=== PATIENT | male | born 1955 | race Caucasian/White ===

== ENCOUNTER 2021-05-22 17:34 | Inpatient (IN) | payer OTHER ==
[~2021-05-22] VITALS: Ht 165.1 cm; Wt 71.0 kg
[2021-05-22 17:49] VITALS: BP_SYST 151
[2021-05-22 19:06] LABS: BASOPHILS % (AUTO) 0.3 % (0.0-2.0); EOSINOPHILS % (AUTO) 0.7 % (0.0-4.0); HEMATOCRIT 42.7 % (36-54); HEMOGLOBIN 14.1 g/dL (14.0-18.0); LYMPHOCYTES # (AUTO) 1.5 K/uL (1.0-5.5); LYMPHOCYTES % (AUTO) 35.5 % (20.5-51.5); MEAN CORPUSCULAR HEMOGLOBIN 32 pg (27-31); MEAN CORPUSCULAR HGB CONC 33 % (32-36); MEAN CORPUSCULAR VOLUME 97 fL (79.0-98.0); MONOCYTES # (AUTO) 0.2 K/uL (0.0-1.0); MONOCYTES % (AUTO) 4.7 % (1.7-9.3); NEUTROPHILS # (AUTO) 2.4 K/uL (1.8-7.7); NEUTROPHILS % (AUTO) 58.8 % (40.0-70.0); PLATELET COUNT (AUTO) 100 K/uL (130-430); RED BLOOD CELL COUNT(AUTO) 4.41 MIL/uL (4.2-6.2); RED CELL DISTRIBUTION WIDTH 15.2 % (9.0-15.0); WHITE BLOOD COUNT (AUTO) 4.1 K/uL (4.8-10.8)
[2021-05-22 19:23] LABS: CALCIUM 8.4 mg/dL (8.4-11.0); CREATININE 3.3 mg/dL (0.55-1.30); POTASSIUM 4.7 mmol/L (3.5-5.1)
[2021-05-22 19:31] LABS: ALBUMIN 1.8 g/dL (3.4-4.8); TOTAL BILIRUBIN 0.4 mg/dL (0.0-1.0)
[2021-05-22] MEDS ORDERED: IOHEXOL 350 mgI/mL, 150 ML INFUS..BTL IV ONE (19:37)
[2021-05-22 20:23] LABS: INR 1.2 (0.80-1.20); PROTHROMBIN TIME 12.2 SECS (9.5-12.5)
[2021-05-22] MEDS ORDERED: LIP20 PO (23:34)
[2021-05-22] MEDS ORDERED: CARV25TA55 PO (23:34)
[2021-05-22] MEDS ORDERED: AMLO5TAB4 PO (23:34)
[2021-05-22] MEDS ORDERED: FURO80TA86 PO (23:35)
[2021-05-22] MEDS ORDERED: SEN30 PO (23:35)
[2021-05-22] MEDS ORDERED: B CO1CAP5 PO (23:39)
[2021-05-22] MEDS ORDERED: INSU100V SQ (23:39)
[2021-05-22] MEDS ORDERED: HYDR100T25 PO (23:39)
[2021-05-22] MEDS ORDERED: SEVE800T8 PO (23:39)
[2021-05-22] MEDS ORDERED: PRO40 PO (23:39)
[2021-05-22] MEDS ORDERED: SENN8.6T19 PO (23:39)
[2021-05-22] MEDS ORDERED: METO10TA3 PO (23:39)
[2021-05-22] MEDS ORDERED: LOSA100T23 PO (23:39)
[2021-05-22] MEDS ORDERED: VARI50KI IM (23:39)
[2021-05-22] MEDS ORDERED: MIRT-91 PO (23:39)
[2021-05-23] MEDS ORDERED: HYDROcodone/ACETAMIN 5-325 MG TAB (NORCO/ VICODIN) PO PRN (05:15)
[2021-05-23] MEDS ORDERED: NALOXONE HCL 0.4 MG/ML AMP (NARCAN) IVP PRN (05:15)
[2021-05-23 05:53] VITALS: BP_SYST 137
[2021-05-23] MEDS: NORMAL SALINE 5 ML DISP.SYRIN IVF SCH ×3 (06:10→22:53)
[2021-05-23] MEDS: ALBUTEROL SULFATE 0.083% 2.5 MG/3 ML VIAL.NEB INH PRN (07:32)
[2021-05-23] MEDS ORDERED: ALBUTEROL SULFATE 0.083% 2.5 MG/3 ML VIAL.NEB INH ONE (07:33)
[2021-05-23 11:28] VITALS: BP_SYST 140
[2021-05-23] MEDS ORDERED: ALBUMIN HUMAN 25% 100 ML IV ONE (15:28)
[2021-05-23 20:00] VITALS: BP_SYST 132
[2021-05-24 00:13] VITALS: BP_SYST 141
[2021-05-24] MEDS ORDERED: GLUCOSE (DEXTROSE) ORAL GEL -Adults PO PRN (01:00)
[2021-05-24] MEDS ORDERED: D5W 1,000 ML IV PRN (01:00)
[2021-05-24] MEDS: DEXTROSE 50% JECT 50 ML DISP.SYRIN IVP PRN (01:45)
[2021-05-24] MEDS ORDERED: ALBUTEROL SULFATE 0.083% 2.5 MG/3 ML VIAL.NEB INH ONE (04:38)
[2021-05-24] MEDS: ALBUTEROL SULFATE 0.083% 2.5 MG/3 ML VIAL.NEB INH PRN (04:39)
[2021-05-24 06:46] LABS: BASOPHILS % (AUTO) 0.1 % (0.0-2.0); EOSINOPHILS % (AUTO) 0.5 % (0.0-4.0); HEMATOCRIT 35.9 % (36-54); HEMOGLOBIN 11.8 g/dL (14.0-18.0); LYMPHOCYTES # (AUTO) 0.4 K/uL (1.0-5.5); LYMPHOCYTES % (AUTO) 13.8 % (20.5-51.5); MEAN CORPUSCULAR HEMOGLOBIN 32 pg (27-31); MEAN CORPUSCULAR HGB CONC 33 % (32-36); MEAN CORPUSCULAR VOLUME 96 fL (79.0-98.0); MONOCYTES # (AUTO) 0.2 K/uL (0.0-1.0); MONOCYTES % (AUTO) 6.3 % (1.7-9.3); NEUTROPHILS # (AUTO) 2.5 K/uL (1.8-7.7); NEUTROPHILS % (AUTO) 79.3 % (40.0-70.0); PLATELET COUNT (AUTO) 73 K/uL (130-430); RED BLOOD CELL COUNT(AUTO) 3.73 MIL/uL (4.2-6.2); RED CELL DISTRIBUTION WIDTH 15.3 % (9.0-15.0); WHITE BLOOD COUNT (AUTO) 3.2 K/uL (4.8-10.8)
[2021-05-24] MEDS: NORMAL SALINE 5 ML DISP.SYRIN IVF SCH ×3 (06:46→23:38)
[2021-05-24 07:19] LABS: ALBUMIN 1.8 g/dL (3.4-4.8); CREATININE 2.83 mg/dL (0.55-1.30); POTASSIUM 4.5 mmol/L (3.5-5.1); TOTAL BILIRUBIN 0.4 mg/dL (0.0-1.0)
[2021-05-24 08:22] VITALS: BP_SYST 151
[2021-05-24] MEDS: INSULIN REGULAR, HUMAN 100 UNITS/ML, 10 ML VIAL (humuLIN R) SUBCUT PRN (11:34)
[2021-05-24 12:31] VITALS: BP_SYST 141
[2021-05-24 18:03] VITALS: BP_SYST 107
[2021-05-24 20:00] VITALS: BP_SYST 132
[2021-05-25 00:47] VITALS: BP_SYST 103
[2021-05-25] MEDS: NORMAL SALINE 5 ML DISP.SYRIN IVF SCH ×3 (05:12→20:53)
[2021-05-25 08:00] VITALS: BP_SYST 128
[2021-05-25] MEDS: INSULIN REGULAR, HUMAN 100 UNITS/ML, 10 ML VIAL (humuLIN R) SUBCUT PRN ×3 (10:37→23:14)
[2021-05-25 11:32] VITALS: BP_SYST 151
[2021-05-25] MEDS ORDERED: MIDODRINE HCL 5 MG TABLET (PROAMATINE) PO ONE (15:15)
[2021-05-25 15:39] VITALS: BP_SYST 120
[2021-05-25] MEDS: ALBUTEROL SULFATE 0.083% 2.5 MG/3 ML VIAL.NEB INH PRN (16:24)
[2021-05-25] MEDS ORDERED: ALBUTEROL SULFATE 0.083% 2.5 MG/3 ML VIAL.NEB INH ONE (16:26)
[2021-05-25 20:00] VITALS: BP_SYST 113
[2021-05-25] MEDS: MIDODRINE HCL 5 MG TABLET (PROAMATINE) PO SCH (20:47)
[2021-05-26 00:21] VITALS: BP_SYST 125
[2021-05-26] MEDS: NORMAL SALINE 5 ML DISP.SYRIN IVF SCH ×3 (05:30→21:46)
[2021-05-26] MEDS: MIDODRINE HCL 5 MG TABLET (PROAMATINE) PO SCH ×3 (10:31→21:45)
[2021-05-26] MEDS ORDERED: COMMUNICATION ORDER XX ONE (11:00)
[2021-05-26 11:44] VITALS: BP_SYST 116
[2021-05-26] MEDS ORDERED: ALBUMIN HUMAN 25% 100 ML IV ONE (12:00)
[2021-05-26 12:30] VITALS: BP_SYST 116
[2021-05-26] MEDS ORDERED: ALBUTEROL SULFATE 0.083% 2.5 MG/3 ML VIAL.NEB INH PRN (12:30)
[2021-05-26 12:33] LABS: BASOPHILS % (AUTO) 0.3 % (0.0-2.0); EOSINOPHILS % (AUTO) 0.6 % (0.0-4.0); HEMATOCRIT 36.6 % (36-54); HEMOGLOBIN 12.3 g/dL (14.0-18.0); LYMPHOCYTES # (AUTO) 1.3 K/uL (1.0-5.5); MEAN CORPUSCULAR HEMOGLOBIN 32 pg (27-31); MEAN CORPUSCULAR HGB CONC 34 % (32-36); MEAN CORPUSCULAR VOLUME 95 fL (79.0-98.0); MONOCYTES # (AUTO) 0.3 K/uL (0.0-1.0); MONOCYTES % (AUTO) 4.5 % (1.7-9.3); NEUTROPHILS % (AUTO) 71.6 % (40.0-70.0); PLATELET COUNT (AUTO) 80 K/uL (130-430); RED BLOOD CELL COUNT(AUTO) 3.84 MIL/uL (4.2-6.2); RED CELL DISTRIBUTION WIDTH 15.3 % (9.0-15.0); WHITE BLOOD COUNT (AUTO) 5.6 K/uL (4.8-10.8)
[2021-05-26 12:42] LABS: CALCIUM 7.2 mg/dL (8.4-11.0); CREATININE 2.87 mg/dL (0.55-1.30); POTASSIUM 4.4 mmol/L (3.5-5.1)
[2021-05-26 15:14] VITALS: BP_SYST 126
[2021-05-26 20:00] VITALS: BP_SYST 131
[2021-05-27] VITALS (14 sets, daily range): BP systolic 90–127
[2021-05-27] MEDS: NORMAL SALINE 5 ML DISP.SYRIN IVF SCH ×3 (06:04→23:27)
[2021-05-27] MEDS: MIDODRINE HCL 5 MG TABLET (PROAMATINE) PO SCH ×3 (08:52→21:00)
[2021-05-27 09:31] LABS: CALCIUM 8.1 mg/dL (8.4-11.0); CREATININE 3.79 mg/dL (0.55-1.30); PHOSPHORUS 3.9 mg/dL (2.7-4.5); POTASSIUM 5.2 mmol/L (3.5-5.1)
[2021-05-27 11:45] LABS: BASOPHILS % (AUTO) 0.1 % (0.0-2.0); EOSINOPHILS % (AUTO) 0.1 % (0.0-4.0); HEMATOCRIT 33.5 % (36-54); HEMOGLOBIN 11.1 g/dL (14.0-18.0); LYMPHOCYTES # (AUTO) 1.1 K/uL (1.0-5.5); LYMPHOCYTES % (AUTO) 15.9 % (20.5-51.5); MEAN CORPUSCULAR HEMOGLOBIN 32 pg (27-31); MEAN CORPUSCULAR HGB CONC 33 % (32-36); MEAN CORPUSCULAR VOLUME 96 fL (79.0-98.0); MONOCYTES # (AUTO) 0.3 K/uL (0.0-1.0); MONOCYTES % (AUTO) 4.5 % (1.7-9.3); NEUTROPHILS # (AUTO) 5.5 K/uL (1.8-7.7); NEUTROPHILS % (AUTO) 79.4 % (40.0-70.0); PLATELET COUNT (AUTO) 61 K/uL (130-430); RED BLOOD CELL COUNT(AUTO) 3.49 MIL/uL (4.2-6.2); RED CELL DISTRIBUTION WIDTH 15.8 % (9.0-15.0); WHITE BLOOD COUNT (AUTO) 6.9 K/uL (4.8-10.8)
[2021-05-27] MEDS ORDERED: INSULIN LISPRO SLIDING SCALE 100 UNITS/ML VIAL (humaLOG) SUBCUT PRN (11:45)
[2021-05-27] MEDS: ONDANSETRON HCL 4 MG/2 ML VIAL IVP PRN (11:59)
[2021-05-27] MEDS ORDERED: PANTOPRAZOLE SODIUM 80 MG in NS 100 ML IVP ONE ×4 (12:00)
[2021-05-27] MEDS ORDERED: D5/0.45 NS 1,000 ML IV SCH (12:00)
[2021-05-27] MEDS ORDERED: PANTOPRAZOLE SODIUM 40 MG in NS 50 ML IV SCH ×2 (12:00→17:00)
[2021-05-27] MEDS: D5/0.45 NS 1,000 ML IV SCH (12:00)
[2021-05-27] MEDS: PANTOPRAZOLE SODIUM 40 MG in NS 50 ML IV SCH ×3 (13:30→23:19)
[2021-05-27] MEDS: PIPERACILLIN/TAZO 2.25G/DEX-IS 50 ML IV SCH ×2 (13:30→17:07)
[2021-05-27] MEDS: IPRATROPIUM/ALBUTEROL SULFATE 3 ML AMPUL.NEB (DUONEB) INH SCH ×3 (14:43→23:15)
[2021-05-27] MEDS: ACETYLCYSTEINE 20% 4 ML VIAL (RT) INH SCH ×2 (14:52→19:20)
[2021-05-27] MEDS: INSULIN REGULAR, HUMAN 100 UNITS/ML, 10 ML VIAL (humuLIN R) SUBCUT PRN ×2 (17:10→23:17)
[2021-05-27] MEDS ORDERED: DEXMEDETOMIDINE HCL 200 MCG in NS 48 ML IV PRN (17:45)
[2021-05-27] MEDS ORDERED: OCTREOTIDE ACETATE 100 MCG/ML AMP IVP ONE (19:30)
[2021-05-27] MEDS: OCTREOTIDE ACETATE 1,250 MCG in NS 243.75 ML IV SCH (22:00)
[2021-05-28] VITALS (30 sets, daily range): BP systolic 91–162
[2021-05-28] MEDS: PIPERACILLIN/TAZO 2.25G/DEX-IS 50 ML IV SCH ×5 (00:34→23:37)
[2021-05-28] MEDS: D5/0.45 NS 1,000 ML IV SCH ×3 (01:51→17:12)
[2021-05-28] MEDS: IPRATROPIUM/ALBUTEROL SULFATE 3 ML AMPUL.NEB (DUONEB) INH SCH ×6 (02:45→23:07)
[2021-05-28 04:17] LABS: BASOPHILS % (AUTO) 0.3 % (0.0-2.0); LYMPHOCYTES # (AUTO) 0.9 K/uL (1.0-5.5); LYMPHOCYTES % (AUTO) 14.8 % (20.5-51.5); MEAN CORPUSCULAR HEMOGLOBIN 32 pg (27-31); MEAN CORPUSCULAR HGB CONC 34 % (32-36); MEAN CORPUSCULAR VOLUME 95 fL (79.0-98.0); MONOCYTES # (AUTO) 0.3 K/uL (0.0-1.0); MONOCYTES % (AUTO) 4.1 % (1.7-9.3); NEUTROPHILS # (AUTO) 5.1 K/uL (1.8-7.7); NEUTROPHILS % (AUTO) 80.8 % (40.0-70.0); PLATELET COUNT (AUTO) 76 K/uL (130-430); RED CELL DISTRIBUTION WIDTH 15.3 % (9.0-15.0); WHITE BLOOD COUNT (AUTO) 6.3 K/uL (4.8-10.8)
[2021-05-28 04:22] LABS: RED BLOOD CELL COUNT(AUTO) 1.88 MIL/uL (4.2-6.2)
[2021-05-28 04:23] LABS: HEMATOCRIT 17.8 % (36-54)
[2021-05-28 04:34] LABS: INR 1.3 (0.80-1.20); PROTHROMBIN TIME 13.6 SECS (9.5-12.5)
[2021-05-28 04:43] LABS: ALBUMIN 1.7 g/dL (3.4-4.8); CALCIUM 7.2 mg/dL (8.4-11.0); CREATININE 4.14 mg/dL (0.55-1.30); PHOSPHORUS 5.2 mg/dL (2.7-4.5); TOTAL BILIRUBIN 0.4 mg/dL (0.0-1.0)
[2021-05-28] MEDS: NORMAL SALINE 5 ML DISP.SYRIN IVF SCH ×3 (05:43→23:36)
[2021-05-28] MEDS: PANTOPRAZOLE SODIUM 40 MG in NS 50 ML IV SCH ×2 (05:44→10:04)
[2021-05-28] MEDS: ACETYLCYSTEINE 20% 4 ML VIAL (RT) INH SCH ×4 (07:00→19:25)
[2021-05-28] MEDS: INSULIN REGULAR, HUMAN 100 UNITS/ML, 10 ML VIAL (humuLIN R) SUBCUT PRN (07:08)
[2021-05-28] MEDS: MIDODRINE HCL 5 MG TABLET (PROAMATINE) PO SCH ×3 (09:00→23:33)
[2021-05-28] MEDS ORDERED: PROPOFOL DRIP 100 ML IV ONE (09:17)
[2021-05-28 10:41] LABS: INR 1.2 (0.80-1.20); PROTHROMBIN TIME 12.7 SECS (9.5-12.5)
[2021-05-28 11:06] LABS: HEMOGLOBIN 6.9 g/dL (14.0-18.0)
[2021-05-28 11:07] LABS: HEMATOCRIT 20.5 % (36-54)
[2021-05-28] MEDS: PROPOFOL DRIP 100 ML IV PRN ×2 (11:19→15:44)
[2021-05-28] MEDS ORDERED: ALBUMIN HUMAN 25% 100 ML IV ONE (11:30)
[2021-05-28 18:20] LABS: HEMATOCRIT 29.2 % (36-54); HEMOGLOBIN 9.9 g/dL (14.0-18.0)
[2021-05-28] MEDS: OCTREOTIDE ACETATE 1,250 MCG in NS 243.75 ML IV SCH (23:32)
[2021-05-29] VITALS (34 sets, daily range): BP systolic 87–150
[2021-05-29] MEDS: IPRATROPIUM/ALBUTEROL SULFATE 3 ML AMPUL.NEB (DUONEB) INH SCH ×6 (02:30→23:18)
[2021-05-29] MEDS: D5/0.45 NS 1,000 ML IV SCH ×3 (02:42→23:48)
[2021-05-29] MEDS: OCTREOTIDE ACETATE 1,250 MCG in NS 243.75 ML IV SCH (04:00)
[2021-05-29] MEDS: NORMAL SALINE 5 ML DISP.SYRIN IVF SCH ×3 (05:39→21:47)
[2021-05-29] MEDS: PIPERACILLIN/TAZO 2.25G/DEX-IS 50 ML IV SCH ×4 (05:39→23:48)
[2021-05-29 06:31] LABS: HEMATOCRIT 25.1 % (36-54)
[2021-05-29] MEDS: ACETYLCYSTEINE 20% 4 ML VIAL (RT) INH SCH ×4 (07:24→19:59)
[2021-05-29] MEDS: INSULIN REGULAR, HUMAN 100 UNITS/ML, 10 ML VIAL (humuLIN R) SUBCUT PRN ×3 (07:41→21:49)
[2021-05-29 07:58] LABS: INR 1.3 (0.80-1.20); PROTHROMBIN TIME 13.3 SECS (9.5-12.5)
[2021-05-29 08:02] LABS: HEMOGLOBIN 8.7 g/dL (14.0-18.0)
[2021-05-29 08:03] LABS: CALCIUM 7.3 mg/dL (8.4-11.0); CREATININE 2.73 mg/dL (0.55-1.30); POTASSIUM 3.7 mmol/L (3.5-5.1)
[2021-05-29] MEDS: PANTOPRAZOLE SODIUM 40 MG in NS 50 ML IV SCH ×4 (09:54→21:47)
[2021-05-29] MEDS: MIDODRINE HCL 5 MG TABLET (PROAMATINE) PO SCH ×3 (09:55→21:00)
[2021-05-29 11:56] LABS: BASOPHILS % (AUTO) 0.1 % (0.0-2.0); EOSINOPHILS % (AUTO) 0.4 % (0.0-4.0); HEMATOCRIT 26.4 % (36-54); HEMOGLOBIN 8.9 g/dL (14.0-18.0); LYMPHOCYTES # (AUTO) 0.8 K/uL (1.0-5.5); MEAN CORPUSCULAR HEMOGLOBIN 31 pg (27-31); MEAN CORPUSCULAR HGB CONC 34 % (32-36); MEAN CORPUSCULAR VOLUME 92 fL (79.0-98.0); MONOCYTES # (AUTO) 0.2 K/uL (0.0-1.0); MONOCYTES % (AUTO) 2.7 % (1.7-9.3); NEUTROPHILS # (AUTO) 5.3 K/uL (1.8-7.7); NEUTROPHILS % (AUTO) 83.8 % (40.0-70.0); PLATELET COUNT (AUTO) 57 K/uL (130-430); RED BLOOD CELL COUNT(AUTO) 2.86 MIL/uL (4.2-6.2); RED CELL DISTRIBUTION WIDTH 15.2 % (9.0-15.0); WHITE BLOOD COUNT (AUTO) 6.3 K/uL (4.8-10.8)
[2021-05-29] MEDS: PROPOFOL DRIP 100 ML IV PRN (12:30)
[2021-05-30] VITALS (35 sets, daily range): BP systolic 89–184
[2021-05-30] MEDS: IPRATROPIUM/ALBUTEROL SULFATE 3 ML AMPUL.NEB (DUONEB) INH SCH ×6 (03:07→23:35)
[2021-05-30 06:25] LABS: ALBUMIN 1.4 g/dL (3.4-4.8); CREATININE 3.06 mg/dL (0.55-1.30); POTASSIUM 3.6 mmol/L (3.5-5.1); TOTAL BILIRUBIN 0.5 mg/dL (0.0-1.0)
[2021-05-30] MEDS: NORMAL SALINE 5 ML DISP.SYRIN IVF SCH ×3 (06:38→22:08)
[2021-05-30] MEDS: PIPERACILLIN/TAZO 2.25G/DEX-IS 50 ML IV SCH ×3 (06:39→18:36)
[2021-05-30] MEDS: INSULIN REGULAR, HUMAN 100 UNITS/ML, 10 ML VIAL (humuLIN R) SUBCUT PRN ×2 (06:43→18:42)
[2021-05-30] MEDS: PANTOPRAZOLE SODIUM 40 MG in NS 50 ML IV SCH ×4 (06:45→22:29)
[2021-05-30] MEDS: ACETYLCYSTEINE 20% 4 ML VIAL (RT) INH SCH ×4 (07:12→20:23)
[2021-05-30 07:51] LABS: BASOPHILS % (AUTO) 0.2 % (0.0-2.0); EOSINOPHILS # (AUTO) 0.1 K/uL (0.0-0.4); EOSINOPHILS % (AUTO) 1.9 % (0.0-4.0); HEMATOCRIT 24.6 % (36-54); HEMOGLOBIN 8.4 g/dL (14.0-18.0); LYMPHOCYTES # (AUTO) 0.7 K/uL (1.0-5.5); LYMPHOCYTES % (AUTO) 15.4 % (20.5-51.5); MEAN CORPUSCULAR HEMOGLOBIN 32 pg (27-31); MEAN CORPUSCULAR HGB CONC 34 % (32-36); MEAN CORPUSCULAR VOLUME 92 fL (79.0-98.0); MONOCYTES # (AUTO) 0.1 K/uL (0.0-1.0); MONOCYTES % (AUTO) 2.6 % (1.7-9.3); NEUTROPHILS # (AUTO) 3.7 K/uL (1.8-7.7); NEUTROPHILS % (AUTO) 79.9 % (40.0-70.0); PLATELET COUNT (AUTO) 50 K/uL (130-430); RED BLOOD CELL COUNT(AUTO) 2.66 MIL/uL (4.2-6.2); RED CELL DISTRIBUTION WIDTH 14.9 % (9.0-15.0); WHITE BLOOD COUNT (AUTO) 4.7 K/uL (4.8-10.8)
[2021-05-30] MEDS: PROPOFOL DRIP 100 ML IV PRN ×2 (08:01→21:44)
[2021-05-30] MEDS: MIDODRINE HCL 5 MG TABLET (PROAMATINE) PO SCH ×3 (09:41→21:00)
[2021-05-30] MEDS: D5/0.45 NS 1,000 ML IV SCH ×2 (09:45→21:16)
[2021-05-30] MEDS: NOREPINEPHRINE BITARTRATE 4 MG in NS 246 ML IV PRN (11:46)
[2021-05-31] VITALS (36 sets, daily range): BP systolic 95–168
[2021-05-31] MEDS: IPRATROPIUM/ALBUTEROL SULFATE 3 ML AMPUL.NEB (DUONEB) INH SCH ×6 (03:19→23:00)
[2021-05-31] MEDS: OCTREOTIDE ACETATE 1,250 MCG in NS 243.75 ML IV SCH (04:00)
[2021-05-31] MEDS: PANTOPRAZOLE SODIUM 40 MG in NS 50 ML IV SCH ×6 (04:13→20:09)
[2021-05-31] MEDS: PIPERACILLIN/TAZO 2.25G/DEX-IS 50 ML IV SCH ×4 (05:49→17:27)
[2021-05-31 06:23] LABS: BASOPHILS % (AUTO) 0.2 % (0.0-2.0); EOSINOPHILS # (AUTO) 0.1 K/uL (0.0-0.4); EOSINOPHILS % (AUTO) 1.7 % (0.0-4.0); HEMATOCRIT 26.3 % (36-54); LYMPHOCYTES # (AUTO) 0.5 K/uL (1.0-5.5); LYMPHOCYTES % (AUTO) 11.3 % (20.5-51.5); MEAN CORPUSCULAR HEMOGLOBIN 32 pg (27-31); MEAN CORPUSCULAR HGB CONC 34 % (32-36); MEAN CORPUSCULAR VOLUME 93 fL (79.0-98.0); MONOCYTES # (AUTO) 0.2 K/uL (0.0-1.0); MONOCYTES % (AUTO) 3.5 % (1.7-9.3); NEUTROPHILS # (AUTO) 3.7 K/uL (1.8-7.7); NEUTROPHILS % (AUTO) 83.3 % (40.0-70.0); RED BLOOD CELL COUNT(AUTO) 2.84 MIL/uL (4.2-6.2); RED CELL DISTRIBUTION WIDTH 14.8 % (9.0-15.0); WHITE BLOOD COUNT (AUTO) 4.4 K/uL (4.8-10.8)
[2021-05-31 06:48] LABS: ALBUMIN 1.3 g/dL (3.4-4.8); CALCIUM 7.1 mg/dL (8.4-11.0); CREATININE 2.43 mg/dL (0.55-1.30); POTASSIUM 3.4 mmol/L (3.5-5.1); TOTAL BILIRUBIN 0.4 mg/dL (0.0-1.0)
[2021-05-31] MEDS: NORMAL SALINE 5 ML DISP.SYRIN IVF SCH ×3 (07:11→21:34)
[2021-05-31] MEDS: ACETYLCYSTEINE 20% 4 ML VIAL (RT) INH SCH ×4 (07:15→19:30)
[2021-05-31] MEDS: D5/0.45 NS 1,000 ML IV SCH ×3 (07:37→18:50)
[2021-05-31] MEDS: MIDODRINE HCL 5 MG TABLET (PROAMATINE) PO SCH ×3 (09:00→21:00)
[2021-05-31 09:39] LABS: PLATELET COUNT (AUTO) 46 K/uL (130-430)
[2021-05-31] MEDS: FLUCONAZOLE 100 mg/ NS 50 ML IV SCH (10:12)
[2021-05-31] MEDS: INSULIN REGULAR, HUMAN 100 UNITS/ML, 10 ML VIAL (humuLIN R) SUBCUT PRN ×2 (17:26→21:39)
[2021-05-31] MEDS: PROPOFOL DRIP 100 ML IV PRN (21:34)
[2021-06-01] VITALS (35 sets, daily range): BP systolic 72–149
[2021-06-01] MEDS: PIPERACILLIN/TAZO 2.25G/DEX-IS 50 ML IV SCH ×2 (00:12→05:26)
[2021-06-01] MEDS: PANTOPRAZOLE SODIUM 40 MG in NS 50 ML IV SCH ×5 (01:48→21:05)
[2021-06-01] MEDS: IPRATROPIUM/ALBUTEROL SULFATE 3 ML AMPUL.NEB (DUONEB) INH SCH ×6 (03:15→23:39)
[2021-06-01] MEDS: NORMAL SALINE 5 ML DISP.SYRIN IVF SCH ×3 (05:27→21:05)
[2021-06-01 06:23] LABS: EOSINOPHILS # (AUTO) 0.1 K/uL (0.0-0.4); EOSINOPHILS % (AUTO) 1.7 % (0.0-4.0); HEMATOCRIT 25.3 % (36-54); HEMOGLOBIN 8.7 g/dL (14.0-18.0); LYMPHOCYTES # (AUTO) 0.4 K/uL (1.0-5.5); LYMPHOCYTES % (AUTO) 10.1 % (20.5-51.5); MEAN CORPUSCULAR HEMOGLOBIN 32 pg (27-31); MEAN CORPUSCULAR HGB CONC 34 % (32-36); MEAN CORPUSCULAR VOLUME 92 fL (79.0-98.0); MONOCYTES # (AUTO) 0.2 K/uL (0.0-1.0); NEUTROPHILS # (AUTO) 3.7 K/uL (1.8-7.7); NEUTROPHILS % (AUTO) 84.2 % (40.0-70.0); RED BLOOD CELL COUNT(AUTO) 2.74 MIL/uL (4.2-6.2); RED CELL DISTRIBUTION WIDTH 14.8 % (9.0-15.0); WHITE BLOOD COUNT (AUTO) 4.4 K/uL (4.8-10.8)
[2021-06-01] MEDS: OCTREOTIDE ACETATE 1,250 MCG in NS 243.75 ML IV SCH ×2 (06:45→21:00)
[2021-06-01] MEDS: PROPOFOL DRIP 100 ML IV PRN ×2 (06:48→15:16)
[2021-06-01 06:49] LABS: ALBUMIN 1.3 g/dL (3.4-4.8); CREATININE 2.78 mg/dL (0.55-1.30); POTASSIUM 3.5 mmol/L (3.5-5.1); TOTAL BILIRUBIN 0.6 mg/dL (0.0-1.0)
[2021-06-01] MEDS: D5/0.45 NS 1,000 ML IV SCH ×2 (06:57→18:04)
[2021-06-01] MEDS: INSULIN REGULAR, HUMAN 100 UNITS/ML, 10 ML VIAL (humuLIN R) SUBCUT PRN (07:10)
[2021-06-01] MEDS: ACETYLCYSTEINE 20% 4 ML VIAL (RT) INH SCH ×4 (07:24→19:40)
[2021-06-01 08:04] LABS: PLATELET COUNT (AUTO) 45 K/uL (130-430)
[2021-06-01] MEDS: LEVOFLOXACIN IN DEXTROSE 5 % 100 ML IV SCH (08:49)
[2021-06-01] MEDS: MIDODRINE HCL 5 MG TABLET (PROAMATINE) PO SCH ×3 (08:56→21:01)
[2021-06-01 08:57] LABS: CALCIUM 6.8 mg/dL (8.4-11.0)
[2021-06-01] MEDS: FLUCONAZOLE 100 mg/ NS 50 ML IV SCH (09:55)
[2021-06-01] MEDS ORDERED: NOREPINEPHRINE 4 MG/4 ML VIAL IV ONE ×2 (11:09)
[2021-06-01] MEDS: NOREPINEPHRINE BITARTRATE 4 MG in NS 246 ML IV PRN (13:43)
[2021-06-01] MEDS ORDERED: PANTOPRAZOLE SODIUM 40 MG/VIAL (PROTONIX) ONE (21:10)
[2021-06-02] VITALS (34 sets, daily range): BP systolic 65–149
[2021-06-02] MEDS: PROPOFOL DRIP 100 ML IV PRN ×2 (00:21→13:32)
[2021-06-02] MEDS: PANTOPRAZOLE SODIUM 40 MG in NS 50 ML IV SCH ×5 (01:11→23:58)
[2021-06-02] MEDS: IPRATROPIUM/ALBUTEROL SULFATE 3 ML AMPUL.NEB (DUONEB) INH SCH ×5 (03:23→19:15)
[2021-06-02] MEDS: D5/0.45 NS 1,000 ML IV SCH ×2 (04:25→17:25)
[2021-06-02] MEDS: NOREPINEPHRINE BITARTRATE 4 MG in NS 246 ML IV PRN (04:25)
[2021-06-02] MEDS: NORMAL SALINE 5 ML DISP.SYRIN IVF SCH ×3 (06:33→23:57)
[2021-06-02] MEDS: INSULIN REGULAR, HUMAN 100 UNITS/ML, 10 ML VIAL (humuLIN R) SUBCUT PRN ×3 (06:35→20:39)
[2021-06-02] MEDS: ACETYLCYSTEINE 20% 4 ML VIAL (RT) INH SCH ×4 (07:32→19:15)
[2021-06-02] MEDS: MIDODRINE HCL 5 MG TABLET (PROAMATINE) PO SCH ×3 (09:13→20:36)
[2021-06-02] MEDS: FLUCONAZOLE 100 mg/ NS 50 ML IV SCH (09:13)
[2021-06-02] MEDS: OCTREOTIDE ACETATE 1,250 MCG in NS 243.75 ML IV SCH (20:35)
[2021-06-03] VITALS (35 sets, daily range): BP systolic 54–198
[2021-06-03] MEDS: IPRATROPIUM/ALBUTEROL SULFATE 3 ML AMPUL.NEB (DUONEB) INH SCH ×7 (00:19→23:06)
[2021-06-03] MEDS: PANTOPRAZOLE SODIUM 40 MG in NS 50 ML IV SCH ×4 (04:57→21:52)
[2021-06-03] MEDS: NORMAL SALINE 5 ML DISP.SYRIN IVF SCH ×3 (04:58→21:15)
[2021-06-03] MEDS: ACETYLCYSTEINE 20% 4 ML VIAL (RT) INH SCH ×4 (07:28→19:35)
[2021-06-03] MEDS: MIDODRINE HCL 5 MG TABLET (PROAMATINE) PO SCH ×3 (08:13→21:15)
[2021-06-03] MEDS: LEVOFLOXACIN IN DEXTROSE 5 % 100 ML IV SCH (08:15)
[2021-06-03 09:23] LABS: ALBUMIN 1.3 g/dL (3.4-4.8); CREATININE 2.53 mg/dL (0.55-1.30); PHOSPHORUS 4.8 mg/dL (2.7-4.5); POTASSIUM 3.6 mmol/L (3.5-5.1); TOTAL BILIRUBIN 0.4 mg/dL (0.0-1.0)
[2021-06-03] MEDS: FLUCONAZOLE 100 mg/ NS 50 ML IV SCH (09:39)
[2021-06-03] MEDS: hydrALAZINE HCL 20 MG/ML VIAL IVP PRN (10:01)
[2021-06-03 10:18] LABS: BASOPHILS % (AUTO) 0.2 % (0.0-2.0); EOSINOPHILS # (AUTO) 0.1 K/uL (0.0-0.4); EOSINOPHILS % (AUTO) 1.4 % (0.0-4.0); HEMATOCRIT 27.1 % (36-54); HEMOGLOBIN 9.1 g/dL (14.0-18.0); LYMPHOCYTES # (AUTO) 0.5 K/uL (1.0-5.5); MEAN CORPUSCULAR HEMOGLOBIN 31 pg (27-31); MEAN CORPUSCULAR HGB CONC 34 % (32-36); MEAN CORPUSCULAR VOLUME 92 fL (79.0-98.0); MONOCYTES # (AUTO) 0.1 K/uL (0.0-1.0); MONOCYTES % (AUTO) 3.9 % (1.7-9.3); NEUTROPHILS # (AUTO) 3.1 K/uL (1.8-7.7); NEUTROPHILS % (AUTO) 81.5 % (40.0-70.0); PLATELET COUNT (AUTO) 71 K/uL (130-430); RED BLOOD CELL COUNT(AUTO) 2.94 MIL/uL (4.2-6.2); RED CELL DISTRIBUTION WIDTH 14.8 % (9.0-15.0); WHITE BLOOD COUNT (AUTO) 3.8 K/uL (4.8-10.8)
[2021-06-03 11:07] LABS: CALCIUM 6.9 mg/dL (8.4-11.0)
[2021-06-03] MEDS ORDERED: CALCIUM GLUCONATE 1 GM/10 ML VIAL IV ONE (12:00)
[2021-06-03 13:01] LABS: C-REACTIVE PROTEIN QUANT 16.6 mg/dL (0-0.5)
[2021-06-03] MEDS ORDERED: CALCIUM GLUCONATE 1 GM in NS 50 ML IV ONE (13:30)
[2021-06-03] MEDS: D5/0.45 NS 1,000 ML IV SCH (13:53)
[2021-06-03 15:18] LABS: ERYTHROCYTE SEDIMENTATION RATE 9 MM/HR (0-15)
[2021-06-03] MEDS: ALBUMIN HUMAN 25% 100 ML IV SCH ×2 (16:47→21:14)
[2021-06-03] MEDS: OCTREOTIDE ACETATE 1,250 MCG in NS 243.75 ML IV SCH (21:14)
[2021-06-04] VITALS (27 sets, daily range): BP systolic 100–152
[2021-06-04] MEDS: ALBUMIN HUMAN 25% 100 ML IV SCH (00:02)
[2021-06-04] MEDS: IPRATROPIUM/ALBUTEROL SULFATE 3 ML AMPUL.NEB (DUONEB) INH SCH ×5 (03:40→23:31)
[2021-06-04] MEDS: PANTOPRAZOLE SODIUM 40 MG in NS 50 ML IV SCH ×2 (05:03→08:05)
[2021-06-04] MEDS: NORMAL SALINE 5 ML DISP.SYRIN IVF SCH ×3 (05:21→22:00)
[2021-06-04 06:45] LABS: BASOPHILS % (AUTO) 0.2 % (0.0-2.0); HEMATOCRIT 23.7 % (36-54); LYMPHOCYTES # (AUTO) 0.3 K/uL (1.0-5.5); MEAN CORPUSCULAR HEMOGLOBIN 31 pg (27-31); MEAN CORPUSCULAR HGB CONC 34 % (32-36); MEAN CORPUSCULAR VOLUME 92 fL (79.0-98.0); MONOCYTES # (AUTO) 0.1 K/uL (0.0-1.0); MONOCYTES % (AUTO) 3.2 % (1.7-9.3); NEUTROPHILS # (AUTO) 2.5 K/uL (1.8-7.7); NEUTROPHILS % (AUTO) 85.6 % (40.0-70.0); PLATELET COUNT (AUTO) 54 K/uL (130-430); RED BLOOD CELL COUNT(AUTO) 2.58 MIL/uL (4.2-6.2); RED CELL DISTRIBUTION WIDTH 14.5 % (9.0-15.0); WHITE BLOOD COUNT (AUTO) 2.9 K/uL (4.8-10.8)
[2021-06-04] MEDS: MIDODRINE HCL 5 MG TABLET (PROAMATINE) PO SCH ×3 (08:05→21:23)
[2021-06-04 08:07] LABS: ALBUMIN 2.3 g/dL (3.4-4.8); CALCIUM 7.3 mg/dL (8.4-11.0); CREATININE 2.73 mg/dL (0.55-1.30); PHOSPHORUS 5.2 mg/dL (2.7-4.5); POTASSIUM 3.7 mmol/L (3.5-5.1); TOTAL BILIRUBIN 0.6 mg/dL (0.0-1.0)
[2021-06-04] MEDS: ACETYLCYSTEINE 20% 4 ML VIAL (RT) INH SCH ×3 (08:14→19:18)
[2021-06-04] MEDS ORDERED: PANTOPRAZOLE SODIUM 40 MG/VIAL (PROTONIX) IVP ONE (09:00)
[2021-06-04] MEDS ORDERED: DIATR MEGLU/DIATRIZ SOD 30 ML SOLUTION PO ONE (09:35)
[2021-06-04] MEDS: D5/0.45 NS 1,000 ML IV SCH (09:59)
[2021-06-04] MEDS: FLUCONAZOLE 100 mg/ NS 50 ML IV SCH (10:00)
[2021-06-04 12:10] LABS: ERYTHROCYTE SEDIMENTATION RATE 12 MM/HR (0-15)
[2021-06-04 13:37] LABS: C-REACTIVE PROTEIN QUANT 12.7 mg/dL (0-0.5)
[2021-06-04] MEDS: INSULIN REGULAR, HUMAN 100 UNITS/ML, 10 ML VIAL (humuLIN R) SUBCUT PRN (17:52)
[2021-06-05] VITALS (24 sets, daily range): BP systolic 69–165
[2021-06-05] MEDS: IPRATROPIUM/ALBUTEROL SULFATE 3 ML AMPUL.NEB (DUONEB) INH SCH ×5 (03:46→23:31)
[2021-06-05] MEDS: NORMAL SALINE 5 ML DISP.SYRIN IVF SCH ×3 (06:49→22:00)
[2021-06-05] MEDS: D5/0.45 NS 1,000 ML IV SCH (06:49)
[2021-06-05] MEDS: ACETYLCYSTEINE 20% 4 ML VIAL (RT) INH SCH ×3 (07:00→19:45)
[2021-06-05 07:15] LABS: ALBUMIN 1.9 g/dL (3.4-4.8); CALCIUM 7.4 mg/dL (8.4-11.0); CREATININE 3.11 mg/dL (0.55-1.30); TOTAL BILIRUBIN 0.5 mg/dL (0.0-1.0)
[2021-06-05 07:37] LABS: BASOPHILS % (AUTO) 0.2 % (0.0-2.0); EOSINOPHILS % (AUTO) 0.8 % (0.0-4.0); HEMATOCRIT 26.1 % (36-54); HEMOGLOBIN 8.8 g/dL (14.0-18.0); LYMPHOCYTES # (AUTO) 0.5 K/uL (1.0-5.5); LYMPHOCYTES % (AUTO) 13.5 % (20.5-51.5); MEAN CORPUSCULAR HEMOGLOBIN 31 pg (27-31); MEAN CORPUSCULAR HGB CONC 34 % (32-36); MEAN CORPUSCULAR VOLUME 91 fL (79.0-98.0); MONOCYTES # (AUTO) 0.1 K/uL (0.0-1.0); MONOCYTES % (AUTO) 2.5 % (1.7-9.3); NEUTROPHILS # (AUTO) 3.2 K/uL (1.8-7.7); PLATELET COUNT (AUTO) 76 K/uL (130-430); RED BLOOD CELL COUNT(AUTO) 2.86 MIL/uL (4.2-6.2); RED CELL DISTRIBUTION WIDTH 14.4 % (9.0-15.0); WHITE BLOOD COUNT (AUTO) 3.8 K/uL (4.8-10.8)
[2021-06-05 08:01] LABS: POTASSIUM 4.3 mmol/L (3.5-5.1)
[2021-06-05] MEDS: PANTOPRAZOLE SODIUM 40 MG/VIAL (PROTONIX) IVP SCH (08:51)
[2021-06-05] MEDS: MIDODRINE HCL 5 MG TABLET (PROAMATINE) PO SCH ×3 (08:51→21:19)
[2021-06-05] MEDS: LEVOFLOXACIN IN DEXTROSE 5 % 100 ML IV SCH (08:51)
[2021-06-05] MEDS: FLUCONAZOLE 100 mg/ NS 50 ML IV SCH (14:36)
[2021-06-05] MEDS ORDERED: CEFAZOLIN 1 GM IVPB PREMIX 100 ML IV ONE (15:42)
[2021-06-05] MEDS ORDERED: METOCLOPRAMIDE HCL 10 MG/2 ML VIAL IVP PRN (16:00)
[2021-06-05] MEDS ORDERED: fentaNYL CITRATE/PF 100 MCG/2 ML AMP IVP PRN ×2 (16:00)
[2021-06-05] MEDS ORDERED: ONDANSETRON HCL 4 MG/2 ML VIAL IVP PRN (16:00)
[2021-06-05] MEDS ORDERED: WATER FOR IRRIGATION,STERILE 1,000 ML IRRIG.SOLN IR ONE (16:05)
[2021-06-05] MEDS ORDERED: LIDOCAINE 1% 10 MG/ML, 20 ML MDV ONE (16:05)
[2021-06-05] MEDS ORDERED: NS 1000 ML IV.SOLN IV ONE (16:05)
[2021-06-05] MEDS ORDERED: NS IRRIG SOLN 1000 ML IR ONE (16:05)
[2021-06-05] MEDS ORDERED: ROCURONIUM BROMIDE 10 MG/ML (ZEMURON) ONE (16:05)
[2021-06-05] MEDS ORDERED: SEVOFLURANE 15 MIN GAS INH ONE (16:05)
[2021-06-06] VITALS (34 sets, daily range): BP systolic 82–166
[2021-06-06] MEDS: D5/0.45 NS 1,000 ML IV SCH ×2 (02:00→22:00)
[2021-06-06] MEDS: IPRATROPIUM/ALBUTEROL SULFATE 3 ML AMPUL.NEB (DUONEB) INH SCH ×6 (03:20→23:01)
[2021-06-06] MEDS: NORMAL SALINE 5 ML DISP.SYRIN IVF SCH ×2 (05:50→22:00)
[2021-06-06 06:29] LABS: BASOPHILS % (AUTO) 0.1 % (0.0-2.0); EOSINOPHILS % (AUTO) 0.2 % (0.0-4.0); HEMATOCRIT 27.1 % (36-54); HEMOGLOBIN 9.3 g/dL (14.0-18.0); LYMPHOCYTES # (AUTO) 0.3 K/uL (1.0-5.5); LYMPHOCYTES % (AUTO) 6.6 % (20.5-51.5); MEAN CORPUSCULAR HEMOGLOBIN 31 pg (27-31); MEAN CORPUSCULAR HGB CONC 35 % (32-36); MEAN CORPUSCULAR VOLUME 91 fL (79.0-98.0); MONOCYTES # (AUTO) 0.1 K/uL (0.0-1.0); MONOCYTES % (AUTO) 1.9 % (1.7-9.3); NEUTROPHILS # (AUTO) 4.5 K/uL (1.8-7.7); NEUTROPHILS % (AUTO) 91.2 % (40.0-70.0); PLATELET COUNT (AUTO) 75 K/uL (130-430); RED BLOOD CELL COUNT(AUTO) 2.99 MIL/uL (4.2-6.2); RED CELL DISTRIBUTION WIDTH 14.8 % (9.0-15.0)
[2021-06-06] MEDS: INSULIN REGULAR, HUMAN 100 UNITS/ML, 10 ML VIAL (humuLIN R) SUBCUT PRN (06:45)
[2021-06-06] MEDS: ACETYLCYSTEINE 20% 4 ML VIAL (RT) INH SCH ×3 (07:00→19:31)
[2021-06-06 07:02] LABS: ALBUMIN 1.7 g/dL (3.4-4.8); CALCIUM 7.5 mg/dL (8.4-11.0); CREATININE 3.41 mg/dL (0.55-1.30); POTASSIUM 4.1 mmol/L (3.5-5.1); TOTAL BILIRUBIN 0.6 mg/dL (0.0-1.0)
[2021-06-06] MEDS: MIDODRINE HCL 5 MG TABLET (PROAMATINE) PO SCH ×3 (09:00→21:00)
[2021-06-06 09:06] LABS: INR 1.1 (0.80-1.20); PROTHROMBIN TIME 11.2 SECS (9.5-12.5)
[2021-06-06] MEDS: PANTOPRAZOLE SODIUM 40 MG/VIAL (PROTONIX) IVP SCH (09:40)
[2021-06-06] MEDS: FLUCONAZOLE 100 mg/ NS 50 ML IV SCH (10:50)
[2021-06-06] MEDS ORDERED: HEPARIN SODIUM,PORCINE 5,000 UNITS/ML VIAL ONE ×2 (11:52→18:02)
[2021-06-06] MEDS: PROPOFOL DRIP 100 ML IV PRN (14:50)
[2021-06-06] MEDS ORDERED: HEPARIN SODIUM,PORCINE 5,000 UNITS/ML VIAL IVP ONE (18:15)
[2021-06-07] VITALS (33 sets, daily range): BP systolic 18–166
[2021-06-07] MEDS: INSULIN REGULAR, HUMAN 100 UNITS/ML, 10 ML VIAL (humuLIN R) SUBCUT PRN ×5 (00:12→22:18)
[2021-06-07] MEDS: IPRATROPIUM/ALBUTEROL SULFATE 3 ML AMPUL.NEB (DUONEB) INH SCH ×6 (02:10→23:11)
[2021-06-07] MEDS ORDERED: PROPOFOL DRIP 100 ML IV PRN (04:45)
[2021-06-07] MEDS: NORMAL SALINE 5 ML DISP.SYRIN IVF SCH ×4 (06:30→23:06)
[2021-06-07] MEDS ORDERED: NALOXONE HCL 0.4 MG/ML AMP (NARCAN) IVP PRN (06:30)
[2021-06-07] MEDS ORDERED: MORPHINE 2 MG/ML INJ. SYRINGE IVP PRN (06:30)
[2021-06-07] MEDS ORDERED: LORazepam 2 MG/ML VIAL IVP PRN (06:30)
[2021-06-07 06:39] LABS: BASOPHILS % (AUTO) 0.1 % (0.0-2.0); EOSINOPHILS % (AUTO) 0.2 % (0.0-4.0); HEMATOCRIT 24.4 % (36-54); HEMOGLOBIN 8.5 g/dL (14.0-18.0); LYMPHOCYTES # (AUTO) 0.4 K/uL (1.0-5.5); LYMPHOCYTES % (AUTO) 6.6 % (20.5-51.5); MEAN CORPUSCULAR HEMOGLOBIN 31 pg (27-31); MEAN CORPUSCULAR HGB CONC 35 % (32-36); MEAN CORPUSCULAR VOLUME 90 fL (79.0-98.0); MONOCYTES # (AUTO) 0.1 K/uL (0.0-1.0); MONOCYTES % (AUTO) 1.9 % (1.7-9.3); NEUTROPHILS # (AUTO) 5.7 K/uL (1.8-7.7); NEUTROPHILS % (AUTO) 91.2 % (40.0-70.0); PLATELET COUNT (AUTO) 74 K/uL (130-430); RED CELL DISTRIBUTION WIDTH 14.8 % (9.0-15.0); WHITE BLOOD COUNT (AUTO) 6.2 K/uL (4.8-10.8)
[2021-06-07] MEDS ORDERED: CEFAZOLIN 1 GM IVPB PREMIX 50 ML IV ONE (07:00)
[2021-06-07 07:11] LABS: ALBUMIN 1.5 g/dL (3.4-4.8); CALCIUM 7.4 mg/dL (8.4-11.0); CREATININE 2.71 mg/dL (0.55-1.30); POTASSIUM 4.4 mmol/L (3.5-5.1); TOTAL BILIRUBIN 0.5 mg/dL (0.0-1.0)
[2021-06-07] MEDS: ACETYLCYSTEINE 20% 4 ML VIAL (RT) INH SCH ×4 (07:21→19:26)
[2021-06-07] MEDS ORDERED: SIMETHICONE 40 MG/0.6 ML ML ONE (07:22)
[2021-06-07] MEDS ORDERED: MEPERIDINE 100 MG INJ. 100 MG/ML VIAL ONE (07:23)
[2021-06-07] MEDS ORDERED: MIDAZOLAM HCL 5 MG/5 ML VIAL ONE (07:23)
[2021-06-07] MEDS ORDERED: fentaNYL CITRATE/PF 100 MCG/2 ML AMP ONE (07:25)
[2021-06-07 07:51] LABS: PROTHROMBIN TIME 11.1 SECS (9.5-12.5)
[2021-06-07] MEDS: LEVOFLOXACIN IN DEXTROSE 5 % 100 ML IV SCH (08:17)
[2021-06-07] MEDS: PANTOPRAZOLE SODIUM 40 MG/VIAL (PROTONIX) IVP SCH (08:17)
[2021-06-07] MEDS: MIDODRINE HCL 5 MG TABLET (PROAMATINE) PO SCH ×3 (08:18→21:00)
[2021-06-07] MEDS ORDERED: METOCLOPRAMIDE HCL 10 MG/2 ML VIAL IVP ONE (08:45)
[2021-06-07] MEDS: FLUCONAZOLE 100 mg/ NS 50 ML IV SCH (10:06)
[2021-06-07] MEDS: METOCLOPRAMIDE HCL 10 MG/2 ML VIAL IVP SCH ×2 (12:55→18:17)
[2021-06-07] MEDS: D5/0.45 NS 1,000 ML IV SCH ×2 (18:00→23:22)
[2021-06-07] MEDS: ONDANSETRON HCL 4 MG/2 ML VIAL IVP PRN (21:02)
[2021-06-08] VITALS (32 sets, daily range): BP systolic 80–149
[2021-06-08] MEDS: METOCLOPRAMIDE HCL 10 MG/2 ML VIAL IVP SCH ×4 (00:54→23:59)
[2021-06-08] MEDS: IPRATROPIUM/ALBUTEROL SULFATE 3 ML AMPUL.NEB (DUONEB) INH SCH ×5 (03:05→23:57)
[2021-06-08] MEDS ORDERED: DEXTROSE 50% JECT 50 ML DISP.SYRIN ONE (06:09)
[2021-06-08 06:20] LABS: BASOPHILS % (AUTO) 0.1 % (0.0-2.0); EOSINOPHILS % (AUTO) 0.1 % (0.0-4.0); HEMOGLOBIN 8.3 g/dL (14.0-18.0); LYMPHOCYTES # (AUTO) 0.3 K/uL (1.0-5.5); LYMPHOCYTES % (AUTO) 5.6 % (20.5-51.5); MEAN CORPUSCULAR HEMOGLOBIN 31 pg (27-31); MEAN CORPUSCULAR HGB CONC 35 % (32-36); MEAN CORPUSCULAR VOLUME 89 fL (79.0-98.0); MONOCYTES # (AUTO) 0.1 K/uL (0.0-1.0); MONOCYTES % (AUTO) 1.5 % (1.7-9.3); NEUTROPHILS # (AUTO) 4.8 K/uL (1.8-7.7); NEUTROPHILS % (AUTO) 92.7 % (40.0-70.0); PLATELET COUNT (AUTO) 74 K/uL (130-430); RED BLOOD CELL COUNT(AUTO) 2.71 MIL/uL (4.2-6.2); RED CELL DISTRIBUTION WIDTH 14.6 % (9.0-15.0); WHITE BLOOD COUNT (AUTO) 5.1 K/uL (4.8-10.8)
[2021-06-08] MEDS: NORMAL SALINE 5 ML DISP.SYRIN IVF SCH ×3 (06:30→22:00)
[2021-06-08] MEDS: DEXTROSE 50% JECT 50 ML DISP.SYRIN IVP PRN (06:31)
[2021-06-08 06:49] LABS: CALCIUM 7.7 mg/dL (8.4-11.0); CREATININE 3.07 mg/dL (0.55-1.30)
[2021-06-08] MEDS: ACETYLCYSTEINE 20% 4 ML VIAL (RT) INH SCH ×3 (07:44→19:43)
[2021-06-08] MEDS: D5/0.45 NS 1,000 ML IV SCH (08:23)
[2021-06-08] MEDS: PANTOPRAZOLE SODIUM 40 MG/VIAL (PROTONIX) IVP SCH (08:23)
[2021-06-08] MEDS: MIDODRINE HCL 5 MG TABLET (PROAMATINE) PO SCH ×3 (08:23→21:16)
[2021-06-08] MEDS: FLUCONAZOLE 100 mg/ NS 50 ML IV SCH (09:41)
[2021-06-08] MEDS ORDERED: MORPHINE 4 MG INJ. 4 MG/ML VIAL IVP PRN (16:00)
[2021-06-08] MEDS ORDERED: ALTEPLASE 2 MG VIAL MC ONE ×2 (17:52→18:00)
[2021-06-09] MEDS: METOCLOPRAMIDE HCL 10 MG/2 ML VIAL IVP SCH ×5 (00:01→23:57)
[2021-06-09 00:11] VITALS: BP_SYST 98
[2021-06-09] MEDS: IPRATROPIUM/ALBUTEROL SULFATE 3 ML AMPUL.NEB (DUONEB) INH SCH ×6 (03:45→22:50)
[2021-06-09] MEDS: NORMAL SALINE 5 ML DISP.SYRIN IVF SCH ×3 (05:09→21:45)
[2021-06-09] MEDS: D5/0.45 NS 1,000 ML IV SCH ×2 (05:09→23:45)
[2021-06-09] MEDS: ACETYLCYSTEINE 20% 4 ML VIAL (RT) INH SCH ×4 (07:50→19:08)
[2021-06-09] MEDS: MIDODRINE HCL 5 MG TABLET (PROAMATINE) PO SCH ×3 (09:39→22:05)
[2021-06-09] MEDS: PANTOPRAZOLE SODIUM 40 MG/VIAL (PROTONIX) IVP SCH (09:39)
[2021-06-09 11:30] VITALS: BP_SYST 101
[2021-06-09] MEDS ORDERED: HEPARIN SODIUM,PORCINE 5,000 UNITS/ML VIAL IVP ONE (12:00)
[2021-06-09 13:40] VITALS: BP_SYST 100
[2021-06-09] MEDS: FLUCONAZOLE 100 mg/ NS 50 ML IV SCH (13:56)
[2021-06-09 15:50] VITALS: BP_SYST 110
[2021-06-09] MEDS: ONDANSETRON HCL 4 MG/2 ML VIAL IVP PRN (16:07)
[2021-06-09 16:11] VITALS: BP_SYST 123
[2021-06-09 20:00] VITALS: BP_SYST 90
[2021-06-10] VITALS (8 sets, daily range): BP systolic 109–127
[2021-06-10] MEDS: IPRATROPIUM/ALBUTEROL SULFATE 3 ML AMPUL.NEB (DUONEB) INH SCH ×6 (03:50→23:06)
[2021-06-10] MEDS: NORMAL SALINE 5 ML DISP.SYRIN IVF SCH ×3 (05:28→21:09)
[2021-06-10] MEDS: METOCLOPRAMIDE HCL 10 MG/2 ML VIAL IVP SCH ×4 (06:31→23:38)
[2021-06-10] MEDS: ACETYLCYSTEINE 20% 4 ML VIAL (RT) INH SCH ×4 (07:41→19:32)
[2021-06-10] MEDS: PANTOPRAZOLE SODIUM 40 MG/VIAL (PROTONIX) IVP SCH (11:53)
[2021-06-10] MEDS: MIDODRINE HCL 5 MG TABLET (PROAMATINE) PO SCH ×3 (11:54→21:08)
[2021-06-10] MEDS: FLUCONAZOLE 100 mg/ NS 50 ML IV SCH (11:56)
[2021-06-10] MEDS: INSULIN REGULAR, HUMAN 100 UNITS/ML, 10 ML VIAL (humuLIN R) SUBCUT PRN (13:12)
[2021-06-10] MEDS: D5/0.45 NS 1,000 ML IV SCH (14:16)
[2021-06-11] VITALS (9 sets, daily range): BP systolic 94–128
[2021-06-11] MEDS: NORMAL SALINE 5 ML DISP.SYRIN IVF SCH ×3 (05:48→23:38)
[2021-06-11] MEDS: METOCLOPRAMIDE HCL 10 MG/2 ML VIAL IVP SCH (05:49)
[2021-06-11] MEDS: ACETYLCYSTEINE 20% 4 ML VIAL (RT) INH SCH ×3 (07:21→19:43)
[2021-06-11] MEDS: IPRATROPIUM/ALBUTEROL SULFATE 3 ML AMPUL.NEB (DUONEB) INH SCH ×4 (07:21→23:11)
[2021-06-11 08:03] LABS: BASOPHILS % (AUTO) 0.1 % (0.0-2.0); EOSINOPHILS % (AUTO) 0.1 % (0.0-4.0); HEMOGLOBIN 7.3 g/dL (14.0-18.0); LYMPHOCYTES # (AUTO) 0.5 K/uL (1.0-5.5); LYMPHOCYTES % (AUTO) 8.9 % (20.5-51.5); MEAN CORPUSCULAR HEMOGLOBIN 31 pg (27-31); MEAN CORPUSCULAR HGB CONC 34 % (32-36); MEAN CORPUSCULAR VOLUME 91 fL (79.0-98.0); MONOCYTES # (AUTO) 0.1 K/uL (0.0-1.0); MONOCYTES % (AUTO) 1.1 % (1.7-9.3); NEUTROPHILS # (AUTO) 4.7 K/uL (1.8-7.7); NEUTROPHILS % (AUTO) 89.8 % (40.0-70.0); RED BLOOD CELL COUNT(AUTO) 2.39 MIL/uL (4.2-6.2); RED CELL DISTRIBUTION WIDTH 15.2 % (9.0-15.0); WHITE BLOOD COUNT (AUTO) 5.2 K/uL (4.8-10.8)
[2021-06-11 08:15] LABS: HEMATOCRIT 21.8 % (36-54); PLATELET COUNT (AUTO) 34 K/uL (130-430)
[2021-06-11] MEDS: MIDODRINE HCL 5 MG TABLET (PROAMATINE) PO SCH (20:14)
[2021-06-12] MEDS: METOCLOPRAMIDE HCL 10 MG/2 ML VIAL IVP SCH ×5 (00:20→23:40)
[2021-06-12 00:21] VITALS: BP_SYST 112
[2021-06-12] MEDS: IPRATROPIUM/ALBUTEROL SULFATE 3 ML AMPUL.NEB (DUONEB) INH SCH ×6 (03:31→22:43)
[2021-06-12] MEDS: D5/0.45 NS 1,000 ML IV SCH ×2 (05:45→11:45)
[2021-06-12] MEDS: NORMAL SALINE 5 ML DISP.SYRIN IVF SCH ×3 (06:00→23:02)
[2021-06-12] MEDS: INSULIN REGULAR, HUMAN 100 UNITS/ML, 10 ML VIAL (humuLIN R) SUBCUT PRN ×2 (06:08→11:43)
[2021-06-12] MEDS: ACETYLCYSTEINE 20% 4 ML VIAL (RT) INH SCH ×4 (07:40→19:34)
[2021-06-12 07:50] LABS: ALBUMIN 1.4 g/dL (3.4-4.8); CALCIUM 7.6 mg/dL (8.4-11.0); CREATININE 2.36 mg/dL (0.55-1.30); POTASSIUM 3.7 mmol/L (3.5-5.1); TOTAL BILIRUBIN 0.6 mg/dL (0.0-1.0)
[2021-06-12 08:00] VITALS: BP_SYST 98
[2021-06-12 08:35] LABS: BASOPHILS # (AUTO) 0.1 K/uL (0.0-0.2); BASOPHILS % (AUTO) 1.7 % (0.0-2.0); EOSINOPHILS % (AUTO) 0.1 % (0.0-4.0); HEMATOCRIT 23.3 % (36-54); HEMOGLOBIN 7.8 g/dL (14.0-18.0); LYMPHOCYTES # (AUTO) 0.3 K/uL (1.0-5.5); LYMPHOCYTES % (AUTO) 4.1 % (20.5-51.5); MEAN CORPUSCULAR HEMOGLOBIN 31 pg (27-31); MEAN CORPUSCULAR HGB CONC 34 % (32-36); MEAN CORPUSCULAR VOLUME 92 fL (79.0-98.0); MONOCYTES % (AUTO) 0.5 % (1.7-9.3); NEUTROPHILS # (AUTO) 7.5 K/uL (1.8-7.7); NEUTROPHILS % (AUTO) 93.6 % (40.0-70.0); RED BLOOD CELL COUNT(AUTO) 2.54 MIL/uL (4.2-6.2); RED CELL DISTRIBUTION WIDTH 15.3 % (9.0-15.0)
[2021-06-12 09:50] LABS: PLATELET COUNT (AUTO) 31 K/uL (130-430)
[2021-06-12] MEDS: FLUCONAZOLE 100 mg/ NS 50 ML IV SCH ×2 (10:02→10:08)
[2021-06-12] MEDS: MIDODRINE HCL 5 MG TABLET (PROAMATINE) PO SCH ×3 (10:02→22:15)
[2021-06-12 12:49] VITALS: BP_SYST 117
[2021-06-12 16:49] VITALS: BP_SYST 101
[2021-06-12 19:00] VITALS: BP_SYST 90
[2021-06-12 20:00] VITALS: BP_SYST 90
[2021-06-12] MEDS: DEXTROSE 50% JECT 50 ML DISP.SYRIN IVP PRN (22:15)
[2021-06-13] VITALS (8 sets, daily range): BP systolic 90–135
[2021-06-13] MEDS: IPRATROPIUM/ALBUTEROL SULFATE 3 ML AMPUL.NEB (DUONEB) INH SCH ×6 (03:56→23:21)
[2021-06-13] MEDS: NORMAL SALINE 5 ML DISP.SYRIN IVF SCH ×3 (07:16→22:36)
[2021-06-13] MEDS: METOCLOPRAMIDE HCL 10 MG/2 ML VIAL IVP SCH ×4 (07:26→23:36)
[2021-06-13] MEDS: ACETYLCYSTEINE 20% 4 ML VIAL (RT) INH SCH ×4 (07:30→20:08)
[2021-06-13] MEDS: D5/0.45 NS 1,000 ML IV SCH (07:45)
[2021-06-13] MEDS: MIDODRINE HCL 5 MG TABLET (PROAMATINE) PO SCH ×3 (09:31→20:44)
[2021-06-13] MEDS ORDERED: INSULIN REGULAR, HUMAN 100 UNITS/ML, 10 ML VIAL (humuLIN R) SUBCUT PRN (10:00)
[2021-06-13] MEDS ORDERED: DEXTROSE 50% JECT 50 ML DISP.SYRIN IVP PRN (10:00)
[2021-06-13 10:38] LABS: CREATININE 2.85 mg/dL (0.55-1.30); PHOSPHORUS 4.7 mg/dL (2.7-4.5); POTASSIUM 3.7 mmol/L (3.5-5.1); TOTAL BILIRUBIN 0.7 mg/dL (0.0-1.0)
[2021-06-13 11:19] LABS: CALCIUM 6.5 mg/dL (8.4-11.0)
[2021-06-13] MEDS ORDERED: HEPARIN SODIUM,PORCINE 5,000 UNITS/ML VIAL ONE (14:27)
[2021-06-13] MEDS ORDERED: HEPARIN SODIUM,PORCINE 5,000 UNITS/ML VIAL SUBCUT ONE (14:30)
[2021-06-13] MEDS: INSULIN REGULAR, HUMAN 100 UNITS/ML, 10 ML VIAL (humuLIN R) SUBCUT PRN (18:33)
[2021-06-13] MEDS: TPN NEPHRAMINE IV SCH ×9 (20:43)
[2021-06-13] MEDS: [UNRECOGNIZED DRUG - OTHER] IV SCH ×9 (20:43)
[2021-06-13] MEDS: SODIUM ACETATE IV SCH ×9 (20:43)
[2021-06-13] MEDS: SODIUM CHLORIDE IV SCH ×9 (20:43)
[2021-06-13] MEDS: FAT EMULSIONS 250 ML IV SCH (20:46)
[2021-06-13] MEDS ORDERED: *TPN PER PHARMACY XX PRN (21:00)
[2021-06-13] MEDS: HEPARIN SODIUM,PORCINE 5,000 UNITS/ML VIAL SUBCUT SCH (21:21)
[2021-06-14 00:38] VITALS: BP_SYST 125
[2021-06-14] MEDS: ONDANSETRON HCL 4 MG/2 ML VIAL IVP PRN (02:39)
[2021-06-14] MEDS: METOCLOPRAMIDE HCL 10 MG/2 ML VIAL IVP SCH ×3 (06:14→17:37)
[2021-06-14] MEDS: NORMAL SALINE 5 ML DISP.SYRIN IVF SCH ×3 (06:16→22:05)
[2021-06-14] MEDS: HEPARIN SODIUM,PORCINE 5,000 UNITS/ML VIAL SUBCUT SCH (06:17)
[2021-06-14] MEDS: PANTOPRAZOLE SODIUM 40 MG/VIAL (PROTONIX) IVP SCH ×3 (06:30→22:04)
[2021-06-14] MEDS: IPRATROPIUM/ALBUTEROL SULFATE 3 ML AMPUL.NEB (DUONEB) INH SCH ×5 (07:28→23:47)
[2021-06-14] MEDS: ACETYLCYSTEINE 20% 4 ML VIAL (RT) INH SCH ×4 (07:31→20:44)
[2021-06-14] MEDS: INSULIN REGULAR, HUMAN 100 UNITS/ML, 10 ML VIAL (humuLIN R) SUBCUT PRN (07:37)
[2021-06-14 08:08] LABS: ALBUMIN 1.3 g/dL (3.4-4.8); CALCIUM 7.6 mg/dL (8.4-11.0); CREATININE 2.52 mg/dL (0.55-1.30); PHOSPHORUS 3.8 mg/dL (2.7-4.5); POTASSIUM 3.5 mmol/L (3.5-5.1); TOTAL BILIRUBIN 0.6 mg/dL (0.0-1.0)
[2021-06-14 08:52] VITALS: BP_SYST 147
[2021-06-14] MEDS ORDERED: PANTOPRAZOLE SODIUM 40 MG/VIAL (PROTONIX) IVP ONE (09:00)
[2021-06-14] MEDS: MIDODRINE HCL 5 MG TABLET (PROAMATINE) PO SCH ×3 (09:00→22:05)
[2021-06-14] MEDS: hydrALAZINE HCL 20 MG/ML VIAL IVP PRN (12:19)
[2021-06-14 12:33] LABS: BASOPHILS % (AUTO) 0.9 % (0.0-2.0); EOSINOPHILS % (AUTO) 0.3 % (0.0-4.0); LYMPHOCYTES # (AUTO) 0.3 K/uL (1.0-5.5); LYMPHOCYTES % (AUTO) 8.5 % (20.5-51.5); MEAN CORPUSCULAR HEMOGLOBIN 31 pg (27-31); MEAN CORPUSCULAR HGB CONC 35 % (32-36); MEAN CORPUSCULAR VOLUME 89 fL (79.0-98.0); MONOCYTES % (AUTO) 1.1 % (1.7-9.3); NEUTROPHILS % (AUTO) 89.2 % (40.0-70.0); RED BLOOD CELL COUNT(AUTO) 2.29 MIL/uL (4.2-6.2); RED CELL DISTRIBUTION WIDTH 14.9 % (9.0-15.0); WHITE BLOOD COUNT (AUTO) 3.3 K/uL (4.8-10.8)
[2021-06-14 12:54] LABS: HEMATOCRIT 20.3 % (36-54); PLATELET COUNT (AUTO) 39 K/uL (130-430)
[2021-06-14] MEDS ORDERED: TPN NEPHRAMINE IV SCH ×9 (13:00)
[2021-06-14] MEDS ORDERED: SODIUM CHLORIDE IV SCH ×9 (13:00)
[2021-06-14] MEDS ORDERED: SODIUM ACETATE IV SCH ×9 (13:00)
[2021-06-14] MEDS ORDERED: [UNRECOGNIZED DRUG - OTHER] IV SCH ×9 (13:00)
[2021-06-14 13:23] VITALS: BP_SYST 156
[2021-06-14 17:55] VITALS: BP_SYST 160
[2021-06-14 20:00] VITALS: BP_SYST 144
[2021-06-14] MEDS: SODIUM CHLORIDE IV SCH ×27 (20:56→22:41)
[2021-06-14] MEDS: TPN NEPHRAMINE IV SCH ×27 (20:56→22:41)
[2021-06-14] MEDS: [UNRECOGNIZED DRUG - OTHER] IV SCH ×9 (20:56)
[2021-06-14] MEDS: SODIUM ACETATE IV SCH ×27 (20:56→22:41)
[2021-06-14] MEDS: [UNRECOGNIZED DRUG - OTHER] IV SCH ×18 (22:00→22:41)
[2021-06-14] MEDS: FAT EMULSIONS 250 ML IV SCH ×2 (22:07→22:45)
[2021-06-14] MEDS: LORazepam 2 MG/ML VIAL IVP PRN (22:14)
[2021-06-15] VITALS (8 sets, daily range): BP systolic 87–156
[2021-06-15] MEDS: IPRATROPIUM/ALBUTEROL SULFATE 3 ML AMPUL.NEB (DUONEB) INH SCH ×6 (04:04→23:43)
[2021-06-15] MEDS: NORMAL SALINE 5 ML DISP.SYRIN IVF SCH ×3 (06:23→21:37)
[2021-06-15] MEDS: METOCLOPRAMIDE HCL 10 MG/2 ML VIAL IVP SCH ×5 (06:25→23:48)
[2021-06-15] MEDS: ACETYLCYSTEINE 20% 4 ML VIAL (RT) INH SCH ×4 (07:48→20:37)
[2021-06-15] MEDS ORDERED: HEPARIN SODIUM,PORCINE 5,000 UNITS/ML VIAL ONE (08:57)
[2021-06-15] MEDS ORDERED: HEPARIN SODIUM,PORCINE 5,000 UNITS/ML VIAL MC ONE (09:00)
[2021-06-15] MEDS: PANTOPRAZOLE SODIUM 40 MG/VIAL (PROTONIX) IVP SCH ×2 (09:00→21:39)
[2021-06-15] MEDS: MIDODRINE HCL 5 MG TABLET (PROAMATINE) PO SCH ×3 (09:01→21:39)
[2021-06-15 09:02] LABS: ALBUMIN 1.2 g/dL (3.4-4.8); CALCIUM 7.6 mg/dL (8.4-11.0); CREATININE 2.8 mg/dL (0.55-1.30); PHOSPHORUS 4.3 mg/dL (2.7-4.5); POTASSIUM 3.8 mmol/L (3.5-5.1); TOTAL BILIRUBIN 0.5 mg/dL (0.0-1.0)
[2021-06-15] MEDS: INSULIN REGULAR, HUMAN 100 UNITS/ML, 10 ML VIAL (humuLIN R) SUBCUT PRN ×3 (13:25→21:52)
[2021-06-15 20:06] LABS: HEMATOCRIT 22.1 % (36-54); HEMOGLOBIN 7.7 g/dL (14.0-18.0); MEAN CORPUSCULAR HEMOGLOBIN 31 pg (27-31); MEAN CORPUSCULAR HGB CONC 35 % (32-36); MEAN CORPUSCULAR VOLUME 89 fL (79.0-98.0); RED BLOOD CELL COUNT(AUTO) 2.49 MIL/uL (4.2-6.2); WHITE BLOOD COUNT (AUTO) 2.8 K/uL (4.8-10.8)
[2021-06-15 20:33] LABS: PLATELET COUNT (AUTO) 18 K/uL (130-430)
[2021-06-15 20:34] LABS: BAND % (MANUAL) 2 % (0-6); BASOPHILS % (MANUAL) 0 % (0-2); EOSINOPHILS % (MANUAL) 0 % (0-7); LYMPHOCYTES % (MANUAL) 5 % (20-46); MONOCYTES % (MANUAL) 2 % (0-11)
[2021-06-15] MEDS ORDERED: TPN NEPHRAMINE IV SCH ×9 (21:00)
[2021-06-15] MEDS ORDERED: SODIUM ACETATE IV SCH ×9 (21:00)
[2021-06-15] MEDS ORDERED: [UNRECOGNIZED DRUG - OTHER] IV SCH ×9 (21:00)
[2021-06-15] MEDS ORDERED: SODIUM CHLORIDE IV SCH ×9 (21:00)
[2021-06-16 00:33] VITALS: BP_SYST 119
[2021-06-16] MEDS: IPRATROPIUM/ALBUTEROL SULFATE 3 ML AMPUL.NEB (DUONEB) INH SCH ×5 (05:48→21:07)
[2021-06-16] MEDS: NORMAL SALINE 5 ML DISP.SYRIN IVF SCH ×3 (06:16→21:34)
[2021-06-16] MEDS: METOCLOPRAMIDE HCL 10 MG/2 ML VIAL IVP SCH ×3 (06:16→17:42)
[2021-06-16] MEDS: INSULIN REGULAR, HUMAN 100 UNITS/ML, 10 ML VIAL (humuLIN R) SUBCUT PRN ×4 (06:17→21:35)
[2021-06-16 07:23] VITALS: BP_SYST 147
[2021-06-16] MEDS: ACETYLCYSTEINE 20% 4 ML VIAL (RT) INH SCH ×4 (07:23→21:08)
[2021-06-16 07:58] LABS: BASOPHILS % (AUTO) 0.2 % (0.0-2.0); EOSINOPHILS % (AUTO) 0.5 % (0.0-4.0); HEMATOCRIT 22.1 % (36-54); HEMOGLOBIN 7.7 g/dL (14.0-18.0); LYMPHOCYTES # (AUTO) 0.2 K/uL (1.0-5.5); LYMPHOCYTES % (AUTO) 9.6 % (20.5-51.5); MEAN CORPUSCULAR HEMOGLOBIN 31 pg (27-31); MEAN CORPUSCULAR HGB CONC 35 % (32-36); MEAN CORPUSCULAR VOLUME 88 fL (79.0-98.0); MONOCYTES % (AUTO) 1.9 % (1.7-9.3); NEUTROPHILS % (AUTO) 87.8 % (40.0-70.0); RED BLOOD CELL COUNT(AUTO) 2.51 MIL/uL (4.2-6.2); RED CELL DISTRIBUTION WIDTH 14.9 % (9.0-15.0); WHITE BLOOD COUNT (AUTO) 2.3 K/uL (4.8-10.8)
[2021-06-16 08:00] VITALS: BP_SYST 147
[2021-06-16 08:50] LABS: PLATELET COUNT (AUTO) 20 K/uL (130-430)
[2021-06-16] MEDS: MIDODRINE HCL 5 MG TABLET (PROAMATINE) PO SCH ×3 (10:05→21:31)
[2021-06-16] MEDS: PANTOPRAZOLE SODIUM 40 MG/VIAL (PROTONIX) IVP SCH ×2 (10:05→21:31)
[2021-06-16 10:27] LABS: ALBUMIN 1.2 g/dL (3.4-4.8); CALCIUM 7.8 mg/dL (8.4-11.0); CREATININE 2.34 mg/dL (0.55-1.30); PHOSPHORUS 3.1 mg/dL (2.7-4.5); POTASSIUM 3.7 mmol/L (3.5-5.1); TOTAL BILIRUBIN 0.5 mg/dL (0.0-1.0)
[2021-06-16 12:28] VITALS: BP_SYST 150
[2021-06-16 16:02] VITALS: BP_SYST 143
[2021-06-16 20:00] VITALS: BP_SYST 139
[2021-06-16] MEDS ORDERED: TPN NEPHRAMINE IV SCH ×9 (21:00)
[2021-06-16] MEDS ORDERED: [UNRECOGNIZED DRUG - OTHER] IV SCH ×9 (21:00)
[2021-06-16] MEDS ORDERED: SODIUM CHLORIDE IV SCH ×9 (21:00)
[2021-06-16] MEDS ORDERED: SODIUM ACETATE IV SCH ×9 (21:00)
[2021-06-16] MEDS: FAT EMULSIONS 250 ML IV SCH (21:31)
[2021-06-17] VITALS (7 sets, daily range): BP systolic 98–122
[2021-06-17] MEDS: LORazepam 2 MG/ML VIAL IVP PRN (00:08)
[2021-06-17] MEDS: METOCLOPRAMIDE HCL 10 MG/2 ML VIAL IVP SCH ×4 (00:10→17:23)
[2021-06-17] MEDS: IPRATROPIUM/ALBUTEROL SULFATE 3 ML AMPUL.NEB (DUONEB) INH SCH ×5 (04:04→20:24)
[2021-06-17] MEDS: NORMAL SALINE 5 ML DISP.SYRIN IVF SCH ×3 (05:52→22:34)
[2021-06-17] MEDS: INSULIN REGULAR, HUMAN 100 UNITS/ML, 10 ML VIAL (humuLIN R) SUBCUT PRN ×4 (05:57→22:23)
[2021-06-17] MEDS: ACETYLCYSTEINE 20% 4 ML VIAL (RT) INH SCH ×4 (07:44→20:25)
[2021-06-17] MEDS: PANTOPRAZOLE SODIUM 40 MG/VIAL (PROTONIX) IVP SCH ×2 (08:58→22:10)
[2021-06-17] MEDS: MIDODRINE HCL 5 MG TABLET (PROAMATINE) PO SCH ×3 (08:58→22:11)
[2021-06-17 09:39] LABS: ALBUMIN 1.2 g/dL (3.4-4.8); CALCIUM 7.7 mg/dL (8.4-11.0); CREATININE 2.54 mg/dL (0.55-1.30); PHOSPHORUS 3.1 mg/dL (2.7-4.5); POTASSIUM 3.6 mmol/L (3.5-5.1); TOTAL BILIRUBIN 0.5 mg/dL (0.0-1.0)
[2021-06-17 13:35] LABS: RED BLOOD CELL COUNT(AUTO) 2.19 MIL/uL (4.2-6.2); WHITE BLOOD COUNT (AUTO) 2.3 K/uL (4.8-10.8)
[2021-06-17 13:36] LABS: HEMATOCRIT 19.6 % (36-54); HEMOGLOBIN 6.7 g/dL (14.0-18.0); MEAN CORPUSCULAR HEMOGLOBIN 31 pg (27-31); MEAN CORPUSCULAR HGB CONC 34 % (32-36); MEAN CORPUSCULAR VOLUME 90 fL (79.0-98.0); RED CELL DISTRIBUTION WIDTH 15.2 % (9.0-15.0)
[2021-06-17 13:37] LABS: PLATELET COUNT (AUTO) 36 K/uL (130-430)
[2021-06-17 14:38] LABS: BAND % (MANUAL) 2 % (0-6); BASOPHILS % (MANUAL) 0 % (0-2); EOSINOPHILS % (MANUAL) 1 % (0-7); LYMPHOCYTES % (MANUAL) 7 % (20-46); MONOCYTES % (MANUAL) 4 % (0-11)
[2021-06-17] MEDS ORDERED: TPN NEPHRAMINE IV SCH ×9 (21:00)
[2021-06-17] MEDS ORDERED: [UNRECOGNIZED DRUG - OTHER] IV SCH ×9 (21:00)
[2021-06-17] MEDS ORDERED: SODIUM ACETATE IV SCH ×9 (21:00)
[2021-06-17] MEDS ORDERED: SODIUM CHLORIDE IV SCH ×9 (21:00)
[2021-06-17] MEDS: FAT EMULSIONS 250 ML IV SCH (22:13)
[2021-06-18] MEDS: METOCLOPRAMIDE HCL 10 MG/2 ML VIAL IVP SCH ×4 (00:03→16:45)
[2021-06-18 01:15] VITALS: BP_SYST 158
[2021-06-18] MEDS: IPRATROPIUM/ALBUTEROL SULFATE 3 ML AMPUL.NEB (DUONEB) INH SCH ×5 (04:11→20:43)
[2021-06-18] MEDS: NORMAL SALINE 5 ML DISP.SYRIN IVF SCH ×3 (05:32→22:00)
[2021-06-18] MEDS: INSULIN REGULAR, HUMAN 100 UNITS/ML, 10 ML VIAL (humuLIN R) SUBCUT PRN ×2 (05:40→10:48)
[2021-06-18 06:58] LABS: BASOPHILS % (AUTO) 0.2 % (0.0-2.0); EOSINOPHILS % (AUTO) 1.6 % (0.0-4.0); HEMOGLOBIN 8.7 g/dL (14.0-18.0); LYMPHOCYTES # (AUTO) 0.1 K/uL (1.0-5.5); LYMPHOCYTES % (AUTO) 6.7 % (20.5-51.5); MEAN CORPUSCULAR HEMOGLOBIN 31 pg (27-31); MEAN CORPUSCULAR HGB CONC 35 % (32-36); MEAN CORPUSCULAR VOLUME 87 fL (79.0-98.0); MONOCYTES # (AUTO) 0.1 K/uL (0.0-1.0); NEUTROPHILS # (AUTO) 1.8 K/uL (1.8-7.7); NEUTROPHILS % (AUTO) 88.5 % (40.0-70.0); RED BLOOD CELL COUNT(AUTO) 2.87 MIL/uL (4.2-6.2); RED CELL DISTRIBUTION WIDTH 14.1 % (9.0-15.0)
[2021-06-18] MEDS: ACETYLCYSTEINE 20% 4 ML VIAL (RT) INH SCH ×4 (07:30→20:44)
[2021-06-18 07:56] LABS: PROTHROMBIN TIME 10.5 SECS (9.5-12.5)
[2021-06-18 08:25] LABS: ALBUMIN 1.2 g/dL (3.4-4.8); CREATININE 2.68 mg/dL (0.55-1.30); PHOSPHORUS 2.1 mg/dL (2.7-4.5); POTASSIUM 3.3 mmol/L (3.5-5.1); TOTAL BILIRUBIN 0.6 mg/dL (0.0-1.0)
[2021-06-18] MEDS ORDERED: PHYTONADIONE 1 MG/0.5 ML SYR SUBCUT ONE (10:30)
[2021-06-18] MEDS: MIDODRINE HCL 5 MG TABLET (PROAMATINE) PO SCH ×3 (10:45→20:46)
[2021-06-18] MEDS: PANTOPRAZOLE SODIUM 40 MG/VIAL (PROTONIX) IVP SCH ×2 (10:45→20:46)
[2021-06-18 11:16] LABS: PLATELET COUNT (AUTO) 26 K/uL (130-430)
[2021-06-18] MEDS ORDERED: HEPARIN SODIUM,PORCINE 5,000 UNITS/ML VIAL ONE (11:19)
[2021-06-18 11:41] VITALS: BP_SYST 142
[2021-06-18 16:32] VITALS: BP_SYST 101
[2021-06-18 20:00] VITALS: BP_SYST 96
[2021-06-18] MEDS: ONDANSETRON HCL 4 MG/2 ML VIAL IVP PRN (20:46)
[2021-06-18] MEDS ORDERED: TPN CENTRAL IV SCH ×10 (21:00)
[2021-06-18] MEDS ORDERED: [UNRECOGNIZED DRUG - OTHER] IV SCH ×10 (21:00)
[2021-06-18] MEDS ORDERED: [UNRECOGNIZED DRUG - OTHER] IV SCH ×10 (21:00)
[2021-06-18] MEDS ORDERED: SODIUM ACETATE IV SCH ×20 (21:00)
[2021-06-18] MEDS ORDERED: TPN NEPHRAMINE IV SCH ×10 (21:00)
[2021-06-18] MEDS ORDERED: SODIUM CHLORIDE IV SCH ×20 (21:00)
[2021-06-18] MEDS: FAT EMULSIONS 250 ML IV SCH (21:07)
[2021-06-19] MEDS: METOCLOPRAMIDE HCL 10 MG/2 ML VIAL IVP SCH ×4 (00:37→17:19)
[2021-06-19] MEDS: IPRATROPIUM/ALBUTEROL SULFATE 3 ML AMPUL.NEB (DUONEB) INH SCH ×6 (04:13→23:43)
[2021-06-19] MEDS: NORMAL SALINE 5 ML DISP.SYRIN IVF SCH ×3 (06:09→21:48)
[2021-06-19] MEDS: INSULIN REGULAR, HUMAN 100 UNITS/ML, 10 ML VIAL (humuLIN R) SUBCUT PRN ×2 (06:32→17:29)
[2021-06-19 07:02] LABS: BASOPHILS % (AUTO) 0.7 % (0.0-2.0); EOSINOPHILS % (AUTO) 1.1 % (0.0-4.0); HEMATOCRIT 23.3 % (36-54); LYMPHOCYTES # (AUTO) 0.2 K/uL (1.0-5.5); LYMPHOCYTES % (AUTO) 11.3 % (20.5-51.5); MEAN CORPUSCULAR HEMOGLOBIN 30 pg (27-31); MEAN CORPUSCULAR HGB CONC 34 % (32-36); MEAN CORPUSCULAR VOLUME 87 fL (79.0-98.0); MONOCYTES # (AUTO) 0.1 K/uL (0.0-1.0); MONOCYTES % (AUTO) 5.5 % (1.7-9.3); NEUTROPHILS # (AUTO) 1.4 K/uL (1.8-7.7); RED BLOOD CELL COUNT(AUTO) 2.67 MIL/uL (4.2-6.2); RED CELL DISTRIBUTION WIDTH 14.2 % (9.0-15.0); RETICULOCYTE COUNT 0.8 % (0.5-1.5)
[2021-06-19] MEDS: ACETYLCYSTEINE 20% 4 ML VIAL (RT) INH SCH ×4 (07:04→20:16)
[2021-06-19 07:29] LABS: CALCIUM 7.7 mg/dL (8.4-11.0); CREATININE 2.33 mg/dL (0.55-1.30); PHOSPHORUS 1.3 mg/dL (2.7-4.5); POTASSIUM 3.8 mmol/L (3.5-5.1)
[2021-06-19 08:11] LABS: PROTHROMBIN TIME 10.8 SECS (9.5-12.5)
[2021-06-19 08:35] LABS: TOTAL IRON BIND. CAPACITY 54 ug/dL (250-450)
[2021-06-19 09:11] LABS: PLATELET COUNT (AUTO) 41 K/uL (130-430); WHITE BLOOD COUNT (AUTO) 1.8 K/uL (4.8-10.8)
[2021-06-19 09:13] LABS: NEUTROPHILS % (AUTO) 81.4 % (40.0-70.0)
[2021-06-19] MEDS: PANTOPRAZOLE SODIUM 40 MG/VIAL (PROTONIX) IVP SCH ×2 (10:18→21:01)
[2021-06-19] MEDS: ONDANSETRON HCL 4 MG/2 ML VIAL IVP PRN (10:18)
[2021-06-19] MEDS: MIDODRINE HCL 5 MG TABLET (PROAMATINE) PO SCH ×3 (10:18→21:04)
[2021-06-19] MEDS: PHYTONADIONE 1 MG/0.5 ML SYR SUBCUT SCH (10:19)
[2021-06-19 10:23] VITALS: BP_SYST 139
[2021-06-19 10:50] VITALS: BP_SYST 139
[2021-06-19 11:18] VITALS: BP_SYST 107
[2021-06-19] MEDS: ACETAMINOPHEN 325 MG TABLET PO PRN (12:11)
[2021-06-19 12:53] VITALS: BP_SYST 141
[2021-06-19] MEDS ORDERED: LORazepam 2 MG/ML VIAL IVP PRN (13:00)
[2021-06-19 13:32] LABS: BILIRUBIN,URINE NEGATIVE (NEGATIVE); BLOOD, URINE 3+ (NEGATIVE); COLOR,URINE BROWN (YELLOW); GLUCOSE,URINE 2+ (NEGATIVE); KETONES,URINE NEGATIVE (NEGATIVE); LEUKOCYTE ESTERASE ,URINE TRACE (NEGATIVE); NITRITE, URINE NEGATIVE (NEGATIVE); PH,URINE 8.5 (5.0-8.0); PROTEIN URINE 2+ (NEGATIVE); UROBILINOGEN,URINE 0.2 (0.2-1.0)
[2021-06-19] MEDS ORDERED: ERYTHROMYCIN LACTOBIONATE 250 MG in NS 50 ML IV SCH (14:00)
[2021-06-19 14:09] LABS: CLARITY/URINE HAZY (CLEAR)
[2021-06-19 14:32] LABS: BACTERIA,URINE None Seen /HPF (None Seen); RBC,URINE 50-80 /HPF (0-3)
[2021-06-19 17:00] VITALS: BP_SYST 129
[2021-06-19] MEDS ORDERED: TBO-FILGRASTIM 480 MCG/0.8 ML SYRINGE SUBCUT ONE (17:45)
[2021-06-19] MEDS ORDERED: TBO-FILGRASTIM 300 MCG/0.5 ML SYRINGE SUBCUT ONE (18:15)
[2021-06-19] MEDS: FAT EMULSIONS 250 ML IV SCH (20:56)
[2021-06-19] MEDS ORDERED: [UNRECOGNIZED DRUG - OTHER] IV SCH ×10 (21:00)
[2021-06-19] MEDS ORDERED: SODIUM ACETATE IV SCH ×10 (21:00)
[2021-06-19] MEDS ORDERED: TPN CENTRAL IV SCH ×10 (21:00)
[2021-06-19] MEDS ORDERED: SODIUM CHLORIDE IV SCH ×10 (21:00)
[2021-06-19] MEDS: ERYTHROMYCIN BASE 500 MG TABLET GT SCH (21:47)
[2021-06-20] VITALS (9 sets, daily range): BP systolic 97–129
[2021-06-20] MEDS: METOCLOPRAMIDE HCL 10 MG/2 ML VIAL IVP SCH ×5 (00:39→23:24)
[2021-06-20] MEDS: IPRATROPIUM/ALBUTEROL SULFATE 3 ML AMPUL.NEB (DUONEB) INH SCH ×6 (03:52→23:40)
[2021-06-20] MEDS: ERYTHROMYCIN BASE 500 MG TABLET GT SCH ×3 (06:05→22:33)
[2021-06-20 06:06] LABS: FOLATE (FOLIC ACID) 3.9 ng/mL (>3.0)
[2021-06-20] MEDS: NORMAL SALINE 5 ML DISP.SYRIN IVF SCH ×3 (06:07→22:35)
[2021-06-20] MEDS: INSULIN REGULAR, HUMAN 100 UNITS/ML, 10 ML VIAL (humuLIN R) SUBCUT PRN (06:13)
[2021-06-20 06:53] LABS: BASOPHILS % (AUTO) 0.2 % (0.0-2.0); EOSINOPHILS % (AUTO) 0.7 % (0.0-4.0); HEMOGLOBIN 7.3 g/dL (14.0-18.0); LYMPHOCYTES # (AUTO) 0.3 K/uL (1.0-5.5); LYMPHOCYTES % (AUTO) 8.4 % (20.5-51.5); MEAN CORPUSCULAR HEMOGLOBIN 30 pg (27-31); MEAN CORPUSCULAR HGB CONC 34 % (32-36); MEAN CORPUSCULAR VOLUME 87 fL (79.0-98.0); MONOCYTES # (AUTO) 0.1 K/uL (0.0-1.0); MONOCYTES % (AUTO) 2.5 % (1.7-9.3); NEUTROPHILS % (AUTO) 88.2 % (40.0-70.0); RED BLOOD CELL COUNT(AUTO) 2.41 MIL/uL (4.2-6.2); RED CELL DISTRIBUTION WIDTH 14.4 % (9.0-15.0); WHITE BLOOD COUNT (AUTO) 3.4 K/uL (4.8-10.8)
[2021-06-20 07:08] LABS: CALCIUM 7.6 mg/dL (8.4-11.0); CREATININE 2.69 mg/dL (0.55-1.30); PHOSPHORUS 1.2 mg/dL (2.7-4.5); POTASSIUM 4.2 mmol/L (3.5-5.1)
[2021-06-20] MEDS: ACETYLCYSTEINE 20% 4 ML VIAL (RT) INH SCH ×4 (07:29→19:38)
[2021-06-20 07:30] LABS: HEMATOCRIT 21.1 % (36-54); PLATELET COUNT (AUTO) 40 K/uL (130-430)
[2021-06-20] MEDS ORDERED: DIATR MEGLU/DIATRIZ SOD 30 ML SOLUTION PO ONE (08:29)
[2021-06-20] MEDS: PHYTONADIONE 1 MG/0.5 ML SYR SUBCUT SCH (08:59)
[2021-06-20] MEDS: MIDODRINE HCL 5 MG TABLET (PROAMATINE) PO SCH ×3 (08:59→22:34)
[2021-06-20] MEDS: ACETAMINOPHEN 325 MG TABLET PO PRN ×2 (09:00→23:23)
[2021-06-20] MEDS: PANTOPRAZOLE SODIUM 40 MG/VIAL (PROTONIX) IVP SCH ×2 (09:00→22:34)
[2021-06-20 14:42] LABS: FERRITIN 1993 ng/mL (30-400)
[2021-06-20] MEDS ORDERED: TBO-FILGRASTIM 480 MCG/0.8 ML SYRINGE SUBCUT SCH (17:00)
[2021-06-20] MEDS ORDERED: TBO-FILGRASTIM 300 MCG/0.5 ML SYRINGE SUBCUT SCH (17:00)
[2021-06-20] MEDS ORDERED: NA PHOS IV SCH ×10 (21:00)
[2021-06-20] MEDS ORDERED: SODIUM CHLORIDE IV SCH ×10 (21:00)
[2021-06-20] MEDS ORDERED: TPN CENTRAL IV SCH ×10 (21:00)
[2021-06-20] MEDS ORDERED: [UNRECOGNIZED DRUG - OTHER] IV SCH ×10 (21:00)
[2021-06-20] MEDS: FAT EMULSIONS 250 ML IV SCH (22:33)
[2021-06-21 01:09] VITALS: BP_SYST 125
[2021-06-21] MEDS: IPRATROPIUM/ALBUTEROL SULFATE 3 ML AMPUL.NEB (DUONEB) INH SCH ×5 (03:16→19:20)
[2021-06-21] MEDS: NORMAL SALINE 5 ML DISP.SYRIN IVF SCH ×2 (06:40→13:53)
[2021-06-21] MEDS: METOCLOPRAMIDE HCL 10 MG/2 ML VIAL IVP SCH ×3 (06:41→18:13)
[2021-06-21] MEDS: ERYTHROMYCIN BASE 500 MG TABLET GT SCH ×2 (06:41→14:43)
[2021-06-21] MEDS: INSULIN REGULAR, HUMAN 100 UNITS/ML, 10 ML VIAL (humuLIN R) SUBCUT PRN ×2 (06:43→12:20)
[2021-06-21] MEDS: ACETYLCYSTEINE 20% 4 ML VIAL (RT) INH SCH ×4 (07:31→19:20)
[2021-06-21 07:55] LABS: ALBUMIN 1.2 g/dL (3.4-4.8); CALCIUM 7.4 mg/dL (8.4-11.0); CREATININE 2.37 mg/dL (0.55-1.30); PHOSPHORUS 1.7 mg/dL (2.7-4.5); POTASSIUM 4.7 mmol/L (3.5-5.1); TOTAL BILIRUBIN 1.2 mg/dL (0.0-1.0)
[2021-06-21 08:17] LABS: BASOPHILS % (AUTO) 0.1 % (0.0-2.0); EOSINOPHILS % (AUTO) 0.3 % (0.0-4.0); HEMOGLOBIN 7.1 g/dL (14.0-18.0); LYMPHOCYTES # (AUTO) 0.4 K/uL (1.0-5.5); LYMPHOCYTES % (AUTO) 4.8 % (20.5-51.5); MEAN CORPUSCULAR HEMOGLOBIN 30 pg (27-31); MEAN CORPUSCULAR HGB CONC 34 % (32-36); MEAN CORPUSCULAR VOLUME 88 fL (79.0-98.0); MONOCYTES # (AUTO) 0.1 K/uL (0.0-1.0); MONOCYTES % (AUTO) 1.5 % (1.7-9.3); NEUTROPHILS # (AUTO) 7.5 K/uL (1.8-7.7); RED BLOOD CELL COUNT(AUTO) 2.36 MIL/uL (4.2-6.2); RED CELL DISTRIBUTION WIDTH 14.8 % (9.0-15.0)
[2021-06-21 09:00] VITALS: BP_SYST 98
[2021-06-21 09:26] LABS: HEMATOCRIT 20.7 % (36-54); PLATELET COUNT (AUTO) 39 K/uL (130-430)
[2021-06-21] MEDS: PANTOPRAZOLE SODIUM 40 MG/VIAL (PROTONIX) IVP SCH (09:42)
[2021-06-21] MEDS: MIDODRINE HCL 5 MG TABLET (PROAMATINE) PO SCH ×2 (09:42→14:43)
[2021-06-21 10:22] VITALS: BP_SYST 98
[2021-06-21] MEDS ORDERED: PHYTONADIONE 10 MG/ML AMP SUBCUT SCH (10:45)
[2021-06-21] MEDS ORDERED: PHYTONADIONE 10 MG/ML AMP SUBCUT ONE (11:00)
[2021-06-21 12:45] VITALS: BP_SYST 122
[2021-06-21 15:40] LABS: NEUTROPHILS % (AUTO) 93.3 % (40.0-70.0)
[2021-06-21 17:34] VITALS: BP_SYST 123
[2021-06-21 19:17] VITALS: BP_SYST 123
[2021-06-21] MEDS ORDERED: [UNRECOGNIZED DRUG - OTHER] IV SCH ×9 (21:00)
[2021-06-21] MEDS ORDERED: SODIUM CHLORIDE IV SCH ×9 (21:00)
[2021-06-21] MEDS ORDERED: TPN CENTRAL IV SCH ×9 (21:00)
[2021-06-21] MEDS ORDERED: NA PHOS IV SCH ×9 (21:00)
[2021-06-21 23:02] LABS: SOURCE/TYPE ,BODY FLUID PARACENTESIS
[2021-06-21 23:03] LABS: APPEARANCE,SPUN,BODY FLUID CLEAR (CLEAR); BF APPEARANCE UNSPUN HAZY (CLEAR); BODY FLUID COLOR YELLOW (LT YELLOW)
[2021-06-21 23:04] LABS: BODY FLUID TOTAL VOLUME 5250 mL
[2021-06-22 00:44] LABS: LYMPHOCYTES, BODY FLUID 61 %; MONOCYTES,BODY FLUID 27 %; NEUTROPHIL, BODY FLUID 12 %; RBC, BODY FLUID 278 /uL; WBC, BODY FLUID 50 /uL
[2021-06-22 00:45] LABS: EOSINOPHIL, BODY FLUID 0 %
[2021-06-22] MEDS ORDERED: PHYTONADIONE 10 MG/ML AMP SUBCUT SCH (09:00)
[2021-06-23 12:10] LABS: BODY FLUID GLUCOSE 204 mg/dL
[2021-06-23 12:11] LABS: BODY FLUID TOTAL PROTEIN 1.7 g/dL
== END 2021-06-21 20:40 | DRG 4 ==
LOC: SED 17:34 → SMU 05-23 03:18 → STU 05-26 14:41 → SIC 05-27 12:24 → STU 06-08 22:06
PROVIDERS: ADMIT Internal Medicine Hospice and Palliative Medicine; ATTEND Internal Medicine Hospice and Palliative Medicine
PROC: 02HV33Z Insertion of Infusion Device into Superior Vena Cava, Percutaneous Approach (ICD-10-PCS; 2021-05-22)
PROC: B548ZZA Ultrasonography of Superior Vena Cava, Guidance (ICD-10-PCS; 2021-05-22)
PROC: 5A1D70Z Performance of Urinary Filtration, Intermittent, Less than 6 Hours Per Day (ICD-10-PCS; 2021-05-23)
PROC: 5A1D70Z Performance of Urinary Filtration, Intermittent, Less than 6 Hours Per Day (ICD-10-PCS; 2021-05-24)
PROC: 5A1D70Z Performance of Urinary Filtration, Intermittent, Less than 6 Hours Per Day (ICD-10-PCS; 2021-05-25)
PROC: 5A1D80Z Performance of Urinary Filtration, Prolonged Intermittent, 6-18 hours Per Day (ICD-10-PCS; 2021-05-26)
PROC: 5A09357 Assistance with Respiratory Ventilation, Less than 24 Consecutive Hours, Continuous Positive Airway Pressure (ICD-10-PCS; 2021-05-27)
PROC: 5A1955Z Respiratory Ventilation, Greater than 96 Consecutive Hours (ICD-10-PCS; principal; 2021-05-28)
PROC: 0B9F8ZX Drainage of Right Lower Lung Lobe, Via Natural or Artificial Opening Endoscopic, Diagnostic (ICD-10-PCS; 2021-05-28)
PROC: 30233R1 Transfusion of Nonautologous Platelets into Peripheral Vein, Percutaneous Approach (ICD-10-PCS; 2021-05-28)
PROC: 30233N1 Transfusion of Nonautologous Red Blood Cells into Peripheral Vein, Percutaneous Approach (ICD-10-PCS; 2021-05-28)
PROC: 5A1D70Z Performance of Urinary Filtration, Intermittent, Less than 6 Hours Per Day (ICD-10-PCS; 2021-05-28)
PROC: 0BH17EZ Insertion of Endotracheal Airway into Trachea, Via Natural or Artificial Opening (ICD-10-PCS; 2021-05-28)
PROC: 0DB58ZX Excision of Esophagus, Via Natural or Artificial Opening Endoscopic, Diagnostic (ICD-10-PCS; 2021-05-29)
PROC: 0DB68ZX Excision of Stomach, Via Natural or Artificial Opening Endoscopic, Diagnostic (ICD-10-PCS; 2021-05-29)
PROC: 5A1D70Z Performance of Urinary Filtration, Intermittent, Less than 6 Hours Per Day (ICD-10-PCS; 2021-05-30)
PROC: 5A1D70Z Performance of Urinary Filtration, Intermittent, Less than 6 Hours Per Day (ICD-10-PCS; 2021-06-01)
PROC: 5A1D70Z Performance of Urinary Filtration, Intermittent, Less than 6 Hours Per Day (ICD-10-PCS; 2021-06-04)
PROC: 0B110F4 Bypass Trachea to Cutaneous with Tracheostomy Device, Open Approach (ICD-10-PCS; 2021-06-05)
PROC: 0W9G3ZZ Drainage of Peritoneal Cavity, Percutaneous Approach (ICD-10-PCS; 2021-06-05)
PROC: 02HV33Z Insertion of Infusion Device into Superior Vena Cava, Percutaneous Approach (ICD-10-PCS; 2021-06-06)
PROC: B548ZZA Ultrasonography of Superior Vena Cava, Guidance (ICD-10-PCS; 2021-06-06)
PROC: 5A1D70Z Performance of Urinary Filtration, Intermittent, Less than 6 Hours Per Day (ICD-10-PCS; 2021-06-06)
PROC: 0DH68UZ Insertion of Feeding Device into Stomach, Via Natural or Artificial Opening Endoscopic (ICD-10-PCS; 2021-06-07)
PROC: 0B110F4 Bypass Trachea to Cutaneous with Tracheostomy Device, Open Approach (ICD-10-PCS; 2021-06-08)
PROC: 5A1D70Z Performance of Urinary Filtration, Intermittent, Less than 6 Hours Per Day (ICD-10-PCS; 2021-06-08)
PROC: 5A1D70Z Performance of Urinary Filtration, Intermittent, Less than 6 Hours Per Day (ICD-10-PCS; 2021-06-10)
PROC: 5A1D70Z Performance of Urinary Filtration, Intermittent, Less than 6 Hours Per Day (ICD-10-PCS; 2021-06-13)
PROC: 5A1D70Z Performance of Urinary Filtration, Intermittent, Less than 6 Hours Per Day (ICD-10-PCS; 2021-06-15)
PROC: 5A1D70Z Performance of Urinary Filtration, Intermittent, Less than 6 Hours Per Day (ICD-10-PCS; 2021-06-18)
PROC: 5A1D70Z Performance of Urinary Filtration, Intermittent, Less than 6 Hours Per Day (ICD-10-PCS; 2021-06-20)
PROC: 0W9G3ZZ Drainage of Peritoneal Cavity, Percutaneous Approach (ICD-10-PCS; 2021-06-21)
DX: J69.0 Pneumonitis due to inhalation of food and vomit (principal); N18.6 End stage renal disease; J96.01 Acute respiratory failure with hypoxia; E43 Unspecified severe protein-calorie malnutrition; K25.4 Chronic or unspecified gastric ulcer with hemorrhage; K20.91 Esophagitis, unspecified with bleeding; K29.71 Gastritis, unspecified, with bleeding; K29.81 Duodenitis with bleeding; R57.1 Hypovolemic shock; I12.0 Hypertensive chronic kidney disease with stage 5 chronic kidney disease or end stage renal disease; D68.9 Coagulation defect, unspecified; D61.818 Other pancytopenia; E87.1 Hypo-osmolality and hyponatremia; Z99.11 Dependence on respirator [ventilator] status; N17.9 Acute kidney failure, unspecified; J15.0 Pneumonia due to Klebsiella pneumoniae; M79.89 Other specified soft tissue disorders; E83.52 Hypercalcemia; E11.65 Type 2 diabetes mellitus with hyperglycemia; E11.22 Type 2 diabetes mellitus with diabetic chronic kidney disease; R53.81 Other malaise; I48.91 Unspecified atrial fibrillation; D73.1 Hypersplenism; E11.43 Type 2 diabetes mellitus with diabetic autonomic (poly)neuropathy; K76.9 Liver disease, unspecified; R13.10 Dysphagia, unspecified; E87.5 Hyperkalemia; D69.6 Thrombocytopenia, unspecified; Z20.822 Contact with and (suspected) exposure to COVID-19; K31.84 Gastroparesis; E87.70 Fluid overload, unspecified; Z74.01 Bed confinement status; Z86.73 Personal history of transient ischemic attack (TIA), and cerebral infarction without residual deficits; Z99.2 Dependence on renal dialysis; Z86.718 Personal history of other venous thrombosis and embolism; Z79.01 Long term (current) use of anticoagulants
CPT/HCPCS: 36415; 36600; 43239; 43246; 49083; 71045; 74018; 76376; 76700-TC; 78579; 78580-TC; 80048; 80053; 81000; 82042; 82607; 82728; 82746; 82803-TC; 82947; 82962; 83051; 83540; 83550; 83690; 83735; 83880; 84100; 84157; 84478; 84484; 85007; 85014; 85025; 85027; 85044; 85379; 85384; 85610-TC; 85651-TC; 85730-TC; 86140; 86886; 86900; 86901; 86920; 87040-TC; 87070-TC; 87081; 87205-TC; 88108; 88305; 88312; 88313; 89051-TC; 89060-TC; 90935; 90937; 93005; 93306; 93970; 94002; 94003; 94640; 94660; 94760; 99285; A9539; A9540; C1729; C9113; G0378; J0360; J0610; J0690; J1447; J1450; J1644; J1815; J1956; J2001; J2060; J2175; J2250; J2270; J2354; J2405; J2543; J2704; J2765; J2997; J3010; J3430; J3475; J3480; J7030; J7050; J7131; J7608; J7613; P9021; P9034; Q9964; Q9967